=== PATIENT | male | born 1975 | race Two or more races ===

== ENCOUNTER 2024-11-12 08:11 | Emergency (ER) | payer MEDICAID, SELFPAY ==
[2024-11-12 08:12] VITALS: BMI 28.3
[2024-11-12 08:44] VITALS: BP 132/84; PULSE 97; RESP 16; TEMP 37.2; O2SAT 95
--- NOTE | 2024-11-12 09:04 | PD.EDRME ---
Rapid Medical Screening Exam RME Arrival date/time: 11/12/24 08:11 This is a 48-year-old male that comes in with complaints of right flank pain and right sided abdominal pain. Patient states pain started yesterday. Patient reports nausea and vomiting. Patient denies diarrhea. Patient has a history of high blood pressure, diabetes, and hyper lipidemia. Patient denies any respiratory symptoms. I have greeted and performed a focused initial assessment of this patient. Initial appropriate labs ordered at this time. A comprehensive ED assessment and evaluation of the patient and analysis of all test and completion of medical decision making process will be conducted by additional ED provider. Chief Complaint: Abdominal Pain Time Seen by Provider: 11/12/24 08:43 Vital signs: Vital Signs Temperature 99.0 F 11/12/24 08:44 Pulse Rate 97 11/12/24 08:44 Respiratory Rate 16 11/12/24 08:44 Blood Pressure 132/84 H 11/12/24 08:44 Pulse Oximetry (%) 95 11/12/24 08:44 Oxygen Delivery Method Room Air 11/12/24 08:44
[2024-11-12 09:18] LABS: Collection Type, Urine Voided; Squamous Epithelial Cell,Urine 0 /hpf (0-5)
[2024-11-12 09:30] LABS: Basophils % (Auto) 0 % (0-2.5); Eosinophils % (Auto) 0 % (0-10); Hemoglobin 15.1 g/dL (13.5-16.0); Immature Granulocytes % (Auto) 0 % (0-0); Immature Granulocytes Auto 0.02 Thou/mm3 (0.00-0.00); Lymphocytes # (Auto) 1.4 Thou/mm3 (1.0-4.8); Lymphocytes % (Auto) 20 % (10-50); Mean Corpuscular HGB Conc 34.3 g/dl (31.0-37.0); Mean Corpuscular Hemoglobin 29.6 pg (25.0-35.0); Mean Corpuscular Volume 86 fL (80-100); Monocytes # (Auto) 0.7 Thou/mm3 (0.0-0.8); Monocytes % (Auto) 9 % (0-12); Neutrophils % (Auto) 71 % (37-80); Nucleated Red Blood Cell % 0 /100 WBC (0); Platelet Count 194 Thou/mm3 (140-440); RDW Standard Deviation 41.1 fL (35.1-43.9); White Blood Count 7.1 Thou/mm3 (3.8-10.6)
[2024-11-12 09:48] LABS: Alanine Aminotransferase 17 U/L (10-49); Albumin, Serum 4.2 gm/dL (3.5-5.0); Albumin/Globulin Ratio 1.7 (1.2-2.2); Alkaline Phosphatase 87 U/L (46-116); Anion Gap 6 (7-16); Aspartate Amino Transferase 26 U/L (0-34); BUN/Creatinine Ratio 16 Ratio (12-20); Bilirubin,Total 0.3 mg/dL (0.3-1.2); Blood Urea Nitrogen 13 mg/dL (9-23); Calcium 8.9 mg/dL (8.3-10.6); Calcium (Corrected) 8.9 mg/dL (8.5-10.1); Carbon Dioxide 30.4 mMol/L (20.0-31.0); Chloride 97 mMol/L (98-107); Creatinine (Component) 0.8 mg/dL (0.6-1.3); Estimated Creatinine Clearance 102.3 mL/min (>60); Globulin 2.5 gm/dL (2.3-3.5); Glucose 159 mg/dL (74-106); Lipase 60 U/L (12-53); Osmolality,Calculated 269 (275-295); Potassium 4.8 mMol/L (3.4-5.1); Sodium 133 mMol/L (136-145); Total Protein 6.7 gm/dL (5.7-8.2); eGFR > 60 See Note
[2024-11-12 09:51] LABS: Bilirubin,Urine Negative (Negative); Blood,Urine Trace (Negative); Clarity,Urine Clear (Clear/Hazy); Color,Urine Lt-Yellow (Lt Yel-Yel); Culture Indicated,Urine Not Indicated; Glucose, Urine 4+ (Negative); Ketones,Urine 1+ (Negative); Leukocyte Esterase,Urine Negative (Negative); Nitrite,Urine Negative (Negative); PH,Urine 6.5 (5.0-7.0); Protein,Urine 3+ (Neg - Trace); RBC,Urine 4 /hpf (0-3); Specific Gravity,Urine 1.029 (1.001-1.035); Urobilinogen,Urine Negative mg/dL (0.0-1.0); WBC,Urine < 1 /hpf (0-5)
[2024-11-12 11:40] VITALS: BP 114/78; PULSE 86; RESP 19; TEMP 37.1; O2SAT 96
--- NOTE | 2024-11-12 11:54 | PD.EDABDPN ---
ED Abdominal Pain RME/HPI General Chief Complaint: Abdominal Pain Stated complaint: RIGHT KIDNEY PAIN FOR 4 DAYS Time seen by provider: 11/12/24 08:43 Arrival date/time: 11/12/24 08:11 RME / HPI RME / HPI narrative: 11/12/24 08:11 This is a 48-year-old male that comes in with complaints of right flank pain and right sided abdominal pain. Patient states pain started yesterday. Patient reports nausea and vomiting. Patient denies diarrhea. Patient has a history of high blood pressure, diabetes, and hyper lipidemia. Patient denies any respiratory symptoms. I have greeted and performed a focused initial assessment of this patient. Initial appropriate labs ordered at this time. A comprehensive ED assessment and evaluation of the patient and analysis of all test and completion of medical decision making process will be conducted by additional ED provider. DR. ERVIN MAIN ED EVALUATION: 48 year old male presents to the Emergency Department with complaint of abdominal pain, left lower quadrant more than right lower quadrant. Pain is described as aching and rated moderate in severity. No modifying factors reported at this time. Associated symptoms include x1 vomiting episode today. Also constipated and last bowel movement was 2 days ago, which is abnormal for him because he states he has a bowel movement daily. He mentions having a subjective fever last night with some sweating. No dysuria. No cough, congestion, or runny nose. No vision changes. PMHx: Diabetes, hypertension, and hyperlipidemia. Social Hx: No tobacco, alcohol, or substance use. Related Data Home Medications ?Medication ?Instructions ?Recorded ?Confirmed atorvastatin 20 mg tablet 20 mg PO QPM 12/31/18 12/31/18 lisinopril 10 mg tablet 10 mg PO QDAY 12/31/18 12/31/18 naproxen 500 mg tablet 500 mg PO BID 12/31/18 12/31/18 sitagliptin phosphate 50 1 tab PO BID 12/31/18 12/31/18 mg-metformin 1,000 mg tablet ([place]) Previous Rx's ?Medication ?Instructions ?Recorded dicyclomine 20 mg tablet 20 mg PO QID PRN abdominal pain 03/08/19 #30 tabs ondansetron HCl 4 mg tablet 4 mg PO QID PRN nausea and 03/08/19 (Zofran) vomiting #14 tabs acetaminophen 650 mg 650 mg PO Q8H PRN fever or pain 04/29/21 tablet,extended release #30 tabs ibuprofen 600 mg tablet 600 mg PO Q8H PRN fever or pain 04/29/21 #30 tabs Allergies Allergy/AdvReac Type Severity Reaction Status Date / Time No Known Allergies Allergy Verified 11/12/24 08:14 Review of Systems Review of Systems Systems Reviewed: All systems reviewed, normal except as documented Narrative Review of Systems: GEN: + subjective fever, no chills, no weight loss, + sweating EYES: No discharge, no visual changes, no pain HEENT: No ear pain, no congestion, no sore throat PULM: No shortness of breath, no cough, no congestion CV: No chest pain, no dyspnea on exertion, no palpitations GI: No nausea, + x1 vomiting episode, no diarrhea, + abdominal pain, left lower quadrant more than right lower quadrant, + constipation (see HPI) : No frequency, no urgency and no dysuria MUSC/SKEL: No joint pain, no back pain SKIN: No rash PSYCH: No hallucinations, no depression HEME/LYMPH: No easy bleeding or bruising tendencies NEURO: No weakness, no headache Past Medical History Past Medical History CARDIAC: Positive Cardiac Disorders, Hypercholesterolemia and Hypertension ENDOCRINE: Positive Diabetes Mellitus Type 2 Social History SMOKING STATUS: Never smoker SUBSTANCE USE: does not use ALCOHOL: Never ED Exam Narrative Physical exam: GENERAL APPEARANCE: alert and oriented x 4, well-developed, well-nourished, looks uncomfortable VITALS: All vitals were reviewed and the pulse ox is 96% on room air, which is normal according to my interpretation. HEENT: Normocephalic, atraumatic; pupils equal, round, reactive to light; EOMI; mucous membranes pink, moist; oropharynx clear NECK: Supple LUNGS: CTABL; no wheezes, no rales, no rhonchi HEART: Regular rate, regular rhythm; normal S1, S2; no murmurs ABDOMEN: non distended; normal BS; there is some left lower quadrant tenderness and right lower quadrant tenderess, L>R; but no guarding and no rebound; no masses, no organomegaly, no hernia BACK: there is right CVA tenderness EXTREMITIES: atraumatic; no edema NEUROLOGIC: awake; alert and oriented x4; cranial nerves II-XII grossly intact; no focal sensory or motor deficits PSYCHIATRIC: appropriate mood and affect SKIN: warm, dry, normal color; no rashes Course Quality Measures none Orders Category Date Time Status CT abdomen pelvis wo con Stat Exams 11/12/24 11:59 Completed CBC Stat Lab 11/12/24 09:13 Completed Comprehensive Metabolic Panel Stat Lab 11/12/24 09:13 Completed Lipase Stat Lab 11/12/24 09:13 Completed Urinalysis, C/S if Indicated Stat Lab 11/12/24 08:55 Completed HYDROcodone*/APAP 5/325 [Schurz 5/325] Med 11/12/24 11:58 Discontinued 1 tab PO X1 ONE Ondansetron Odt [Zofran Odt] Med 11/12/24 11:58 Discontinued 4 mg PO X1 ONE Vital Signs Vital signs: Vital Signs Temperature 99.0 F 11/12/24 08:44 Pulse Rate 97 11/12/24 08:44 Respiratory Rate 16 11/12/24 08:44 Blood Pressure 132/84 H 11/12/24 08:44 Pulse Oximetry (%) 95 11/12/24 08:44 Oxygen Delivery Method Room Air 11/12/24 08:44 Abdominal Pain MDM MDM Narrative MDM Narrative:: IShantelle am scribing for and in the presence of Dr. Ervin. Patient data External records reviewed:: [facility] previous records (Reviewed last ED visit dated 02/18/23, discharged with the following: Acute flank pain) Clinical information provided by:: patient Social determinants that could affect healthcare access:: none Patient has the following chronic illnesses:: Diabetes, hypertension, and hyperlipidemia. How is presenting disease/condition affected by chronic disease/condition?: exacerbated by Evaluation data The following diagnostics were reviewed and interpreted by me:: lab results and radiology exam(s) Lab and/or radiology exams considered but not ordered:: none Interpretation Summary: Procedure(s): CT abdomen pelvis wo con Accession Number(s): [id number] cc: Pravin Pelayo MD; Lemuel Chaudhary MD; Gini Ervin MD~ Examination: CT abdomen and pelvis without contrast. Coronal 3-D reconstructions. Sagittal 2-D reconstructions. Date and time of exam:November 12, 2024 1211 hrs. Indications: Left lower abdominal pain right flank pain beginning 4 days ago CTDI: vol (mGy): 7.69 DLP: (mGycm): 408 Technique: Axial images of the abdomen have been obtained, 3 mm slice thickness Intravenous contrast material has not been administered. Low dose protocols were performed. One or more of the following dose reduction techniques were used; automated exposure control, adjustment of the mA and/or KV according to patient size, use of iterative reconstruction technique. Findings: No focal liver or splenic lesions No gallstones No pancreatic or adrenal mass Perinephric stranding No renal or ureteral calculi Small right renal cyst No bowel obstruction Normal appendix No diverticulitis Transverse prostate dimension 5.3 cm Intact urinary bladder Mild osteopenia Impression: Perinephric stranding, consider urinary tract infection No renal or ureteral calculi, no hydronephrosis Cholelithiasis Normal appendix No bowel obstruction No diverticulitis Dictated By: Lemuel Chaudhary MD Medications / Prescriptions Medications or Prescriptions considered but not ordered:: none Medication administrations:: Medication Administration History Discontinued Medications Hydrocodone Bitart/Acetaminophen (Hydrocodone/Apap 5/325 Tablet) 1 tab PO X1 ONE Stop: 11/12/24 11:59 Last Admin: 11/12/24 12:39 Dose: 1 tab Documented By: SYLWIA Ondansetron HCl (Ondansetron Odt 4 Mg Tabrap) 4 mg PO X1 ONE; Protocol Stop: 11/12/24 11:59 Last Admin: 11/12/24 12:39 Dose: 4 mg Documented By: SYLWIA see above Consultations Consultation(s) initiated? (list below): No Diagnosis Differential diagnosis abdominal pain: abdominal pain, calculus of kidney, constipation and small bowel obstruction Most likely diagnosis given after review of the tests above:: Proteinuria Right flank pain Cholelithiasis Biliary colic Admission Indicated Admission indicated?: not indicated Admission Request Was there a request for admission?: No Disposition Plan Disposition Plan: Discharge Discharge Attestation Discharge Attestation: The patient and all family members were given an opportunity to ask questions and understood the discharge instructions. Discharge instructions specifically effects, indications for sooner follow up or return to the emergency department, and the expected course of current diagnosis. Patient condition: Stable Discharge Plan Prescriptions/Referrals Prescriptions/Med Rec: No Action atorvastatin 20 mg Tablet 20 mg PO QPM lisinopril 10 mg Tablet 10 mg PO QDAY naproxen 500 mg Tablet 500 mg PO BID Janumet 50-1,000 mg Tablet 1 tab PO BID ondansetron HCl [Zofran] 4 mg tablet 4 mg PO QID PRN (Reason: nausea and vomiting) Qty: 14 0RF dicyclomine 20 mg tablet 20 mg PO QID PRN (Reason: abdominal pain) Qty: 30 0RF acetaminophen 650 mg tablet extended release 650 mg PO Q8H PRN (Reason: fever or pain) Qty: 30 0RF Rx Instructions: swallow whole; do not chew/break/dissolve/open ibuprofen 600 mg tablet 600 mg PO Q8H PRN (Reason: fever or pain) Qty: 30 0RF Referrals: Pravin Pelayo MD [Primary Care Provider] - In 1 week Problem List Clinical Impression: Proteinuria, Right flank pain, Cholelithiasis, Biliary colic Patient/Caregiver Discharge Instructions Education Materials: ED Flank Pain, Uncertain Cause, ED Gallstones with Biliary Colic, ED Proteinuria Additional Instructions: Follow up with your doctor to recheck protein in urine. Return to the emergency department if your symptoms worsen, do not improve, or other concerns. Print Language: Yi
--- NOTE | 2024-11-12 11:59 | XR_ITS ---
Examination: CT abdomen and pelvis without contrast. Coronal 3-D reconstructions. Sagittal 2-D reconstructions. Date and time of exam:November 12, 2024 1211 hrs. Indications: Left lower abdominal pain right flank pain beginning 4 days ago CTDI: vol (mGy): 7.69 DLP: (mGycm): 408 Technique: Axial images of the abdomen have been obtained, 3 mm slice thickness Intravenous contrast material has not been administered. Low dose protocols were performed. One or more of the following dose reduction techniques were used; automated exposure control, adjustment of the mA and/or KV according to patient size, use of iterative reconstruction technique. Findings: No focal liver or splenic lesions No gallstones No pancreatic or adrenal mass Perinephric stranding No renal or ureteral calculi Small right renal cyst No bowel obstruction Normal appendix No diverticulitis Transverse prostate dimension 5.3 cm Intact urinary bladder Mild osteopenia Impression: Perinephric stranding, consider urinary tract infection No renal or ureteral calculi, no hydronephrosis Cholelithiasis Normal appendix No bowel obstruction No diverticulitis
[2024-11-12] MEDS: HYDROcodone/APAP 5/325 TABLET 1 TAB PO (12:39)
[2024-11-12] MEDS: ONDANSETRON ODT 4 MG TABRAP PO (12:39)
[2024-11-12 14:37] VITALS: BP 114/78; PULSE 83; RESP 16; TEMP 36.7; O2SAT 96
--- NOTE | 2024-11-12 14:54 | PC.NURSE ---
This RN notified by Pooja [employer] that pt FSBS [address] Ervin made aware; verbal orders received for pt to drink orange juice and to recheck FSBS in 30minutes.
[2024-11-12 15:40] VITALS: BP 124/81; PULSE 80; RESP 18; TEMP 36.8; O2SAT 96
== END 2024-11-12 15:41 | disposition home or self-care (01) ==
LOC: SERX 09:22
PROVIDERS: Nurse Practitioner Family; Emergency Provider Emergency Medicine; PCP Family Medicine
DX: K80.70 Calculus of gallbladder and bile duct without cholecystitis without obstruction (principal); R80.9 Proteinuria, unspecified; E11.9 Type 2 diabetes mellitus without complications; E78.5 Hyperlipidemia, unspecified
CPT/HCPCS: 36415; 74176; 80053; 81001; 83690; 85025; 99284; Q0162; A9270

== ENCOUNTER 2025-08-05 02:56 | Inpatient (IN) | payer MEDICAID, SELFPAY ==
[2025-08-05] VITALS (31 sets, daily range): BP systolic 106–154; BP diastolic 61–87; PULSE 106–123; RESP 6–27; TEMP 36.3–36.9; O2SAT 94–100; BMI 27.4
--- NOTE | 2025-08-05 03:37 | XR_ITS ---
Examination: CT abdomen and pelvis without contrast. Coronal 3-D reconstructions. Sagittal 2-D reconstructions. Date and time of exam: August 05, 2025, 0354 hours INDICATIONS: Bilateral flank pain and vomiting beginning today. COMPARISON: November 12, 2024 CTDI: vol (mGy): 7.26 DLP: (mGycm): 410 Technique: Axial images of the abdomen have been obtained, 3 mm slice thickness Intravenous contrast material has not been administered. Low dose protocols were performed. One or more of the following dose reduction techniques were used; automated exposure control, adjustment of the mA and/or KV according to patient size, use of iterative reconstruction technique. Findings: No focal liver or splenic lesions Cholelithiasis No pancreatic mass. No renal or ureteral calculi, no hydronephrosis Normal appendix No bowel obstruction No diverticulitis No bladder mass or bladder calculi Prostate is mildly irregular in contour, clinical correlation advised Mild osteopenia IMPRESSION: Cholelithiasis, negative for cholecystitis No renal or ureteral calculi Prostate is mildly irregular in contour, recommend correlation with PSA
--- NOTE | 2025-08-05 03:38 | PD.EDRME ---
Rapid Medical Screening Exam RME Arrival date/time: 08/05/25 02:56 This is a case of 49-year-old male who came in in the emergency room due to bilateral flank pain radiating to abdominal pain for 2 days associated with nausea vomiting patient blood sugar today noted 433 thus decided to start consult in the emergency room Chief Complaint: General Adult/Misc Complain Time Seen by Provider: 08/05/25 03:37 Vital signs: Vital Signs Temperature 97.7 F 08/05/25 03:32 Pulse Rate 113 H 08/05/25 03:32 Respiratory Rate 20 08/05/25 03:32 Blood Pressure 106/66 08/05/25 03:32 Pulse Oximetry (%) 97 08/05/25 03:32 Oxygen Delivery Method Room Air 08/05/25 03:32 Exam: Bilateral flank tenderness abdomen soft no guarding no rebound no rigidity excellent skin turgor Clinical Impression: Bilateral flank pain vomiting hyperglycemia
[2025-08-05 03:59] LABS: Base Excess, Venous -17 (-3-3); Basophils # (Auto) 0.0 Thou/mm3 (0.0-0.2); Basophils % (Auto) 0 % (0-2.5); Eosinophils # (Auto) 0.0 Thou/mm3 (0.0-0.5); Eosinophils % (Auto) 0 % (0-10); Hematocrit 46.7 % (41.0-53.0); Hemoglobin 15.4 g/dL (13.5-16.0); Immature Granulocytes Auto 0.07 Thou/mm3 (0.00-0.00); Lymphocytes # (Auto) 0.7 Thou/mm3 (1.0-4.8); Lymphocytes % (Auto) 5 % (10-50); Mean Corpuscular HGB Conc 33.0 g/dl (31.0-37.0); Mean Corpuscular Hemoglobin 29.7 pg (25.0-35.0); Mean Corpuscular Volume 90 fL (80-100); Monocytes # (Auto) 0.7 Thou/mm3 (0.0-0.8); Monocytes % (Auto) 5 % (0-12); Neutrophils # (Auto) 12.6 Thou/mm3 (1.8-7.7); Neutrophils % (Auto) 90 % (37-80); Nucleated Red Blood Cell # 0.00 Thou/mm3 (0.00-0.00); Nucleated Red Blood Cell % 0 /100 WBC (0); O2 Saturation, Venous 62 % (96-97); PCO2, Venous 37 mmHg (36-56); PO2, Venous 36 mmHg (15-58); Platelet Count 268 Thou/mm3 (140-440); RDW Standard Deviation 43.3 fL (35.1-43.9); Red Blood Count 5.19 Miln/mm3 (4.50-5.90); White Blood Count 14.0 Thou/mm3 (3.8-10.6); pH, Venous 7.10 (7.33-7.66)
[2025-08-05 04:04] LABS: Beta Hydroxybutyrate > 6.4 mmol/L (<0.6)
[2025-08-05] MEDS: HYDROcodone/APAP 5/325 TABLET 1 TAB PO (04:14)
[2025-08-05] MEDS: KETOROLAC INJ 60 MG/2 ML VIAL 30 MG IM (04:15)
[2025-08-05] MEDS: ONDANSETRON ODT 4 MG TABRAP PO (04:15)
--- NOTE | 2025-08-05 04:19 | PD.EDWEAK ---
ED Weakness RME/HPI General Chief complaint: General Adult/Misc Complain Stated complaint: NAUSEA VOMITING BS 433 Time Seen by Provider: 08/05/25 03:37 Arrival date/time: 08/05/25 02:56 RME / HPI RME / HPI Narrative: 08/05/25 02:56 This is a case of 49-year-old male who came in in the emergency room due to bilateral flank pain radiating to abdominal pain for 2 days associated with nausea vomiting patient blood sugar today noted 433 thus decided to start consult in the emergency room See [facility] for Dr. Montenegro's HPI Documentation. Exam: Bilateral flank tenderness abdomen soft no guarding no rebound no rigidity excellent skin turgor Impression: Bilateral flank pain vomiting hyperglycemia Related Data Home Medications ?Medication ?Instructions ?Recorded ?Confirmed lisinopril 10 mg tablet 10 mg PO QDAY 12/31/18 08/05/25 naproxen 500 mg tablet 500 mg PO BID 12/31/18 08/05/25 sitagliptin phosphate 50 1 tab PO BID 12/31/18 08/05/25 mg-metformin 1,000 mg tablet (Janumet) dulaglutide 3 mg/0.5 mL 3 mg subcut .WEEKLY 08/05/25 08/05/25 subcutaneous pen injector (Trulicity) insulin detemir U-100 100 unit/mL 30 unit subcut BID 08/05/25 08/05/25 (3 mL) subcutaneous pen insulin glargine 100 unit/mL (3 35 unit subcut BID 08/05/25 08/05/25 mL) subcutaneous pen (Lantus Solostar U-100 Insulin) Previous Rx's ?Medication ?Instructions ?Recorded dicyclomine 20 mg tablet 20 mg PO QID PRN abdominal pain 03/08/19 #30 tabs ondansetron HCl 4 mg tablet 4 mg PO QID PRN nausea and 03/08/19 (Zofran) vomiting #14 tabs acetaminophen 650 mg 650 mg PO Q8H PRN fever or pain 04/29/21 tablet,extended release #30 tabs ibuprofen 600 mg tablet 600 mg PO Q8H PRN fever or pain 04/29/21 #30 tabs Allergies Allergy/AdvReac Type Severity Reaction Status Date / Time No Known Allergies Allergy Verified 08/05/25 03:05 Review of Systems Review of Systems Systems Reviewed: All systems reviewed, normal except as documented Past Medical History Past Medical History CARDIAC: Positive Cardiac Disorders, Hypercholesterolemia and Hypertension ENDOCRINE: Positive Diabetes Mellitus Type 2 ED Exam Narrative Physical exam: See MDM for Dr. Montenegro's Physical Exam Documentation. Course Quality Measures none Orders Category Date Time Status Bedside COVID-19 Antigen Test NOW Care 08/05/25 04:22 Active COVID-19 Screening Questionnaire NOW Care 08/05/25 04:48 Active Decision to Admit X1 Care 08/05/25 04:48 Completed EKG (ED ONLY) *Do not use* NOW Care 08/05/25 04:24 Completed Saline [Insert IV] NOW Care 08/05/25 04:22 Active Straight [In and Out Catheter] X1 Care 08/05/25 04:[address] abdomen pelvis wo con Stat Exams 08/05/25 03:37 Completed EKG (ED Only) Stat Exams 08/05/25 04:24 Draft XR chest 1V portable Stat Exams 08/05/25 04:24 Completed ABG [Arterial Blood Gas] Stat Lab 08/05/25 05:23 Completed Alcohol, Blood Medical Stat Lab 08/05/25 04:45 Completed Amylase Stat Lab 08/05/25 04:45 Completed BNP [B-Type Natriuretic Peptide] Stat Lab 08/05/25 04:45 Completed Beta Hydroxybutyrate Stat Lab 08/05/25 03:40 Completed Bilirubin,Direct Stat Lab 08/05/25 04:45 Completed Blood Culture (Lab) Stat Lab 08/05/25 04:45 Received CBC Stat Lab 08/05/25 03:40 Completed CRP [C-Reactive Protein] Stat Lab 08/05/25 04:45 Completed Comprehensive Metabolic Panel Stat Lab 08/05/25 03:40 Completed Drug Screen,Urine Stat Lab 08/05/25 07:09 Ordered ESR [Sed Rate (ESR)] Stat Lab 08/05/25 04:45 Completed Hemoglobin A1C [Glycohemoglobin w (eAG)] Stat Lab 08/05/25 04:45 Completed Influenza A & B Rapid Panel Stat Lab 08/05/25 07:00 Completed Lactate (Lactic Acid) Stat Lab 08/05/25 04:45 Completed Lipase Stat Lab 08/05/25 03:40 Completed Lipid Panel Stat Lab 08/05/25 04:45 Completed Magnesium Stat Lab 08/05/25 04:45 Completed PT [Prothrombin Time with INR] Stat Lab 08/05/25 04:45 Completed PTT [Partial Thromboplastin Time] Stat Lab 08/05/25 04:45 Completed Phosphorous Stat Lab 08/05/25 04:45 Completed Procalcitonin Stat Lab 08/05/25 04:45 Completed TSH [Thyroid Stimulating Hormone] Stat Lab 08/05/25 04:45 Completed Troponin I Stat Lab 08/05/25 04:45 Completed UA, C/S IF [Urinalysis, C/S if Indicated] Stat Lab 08/05/25 07:09 Ordered Venous Blood Gas Stat Lab 08/05/25 03:40 Completed HYDROcodone*/APAP 5/325 [[place] 5/325] Med 08/05/25 03:37 Discontinued 1 tab PO X1 ONE Insulin Reg 100 Units/100 ml [Myxredlin] Med 08/05/25 04:24 Discontinued 100 unit in 100 ml IV 0.1 unit/kg/hr Insulin Regular Med 08/05/25 04:37 Discontinued 10 unit IV X1 ONE Ketorolac Inj [Toradol Inj] Med 08/05/25 03:37 Discontinued 30 mg IM X1 ONE Ondansetron Inj [Zofran Inj] Med 08/05/25 04:23 Discontinued 4 mg IVP X1 ONE Ondansetron Odt [Zofran Odt] Med 08/05/25 03:37 Discontinued 4 mg PO X1 ONE Ringers Lactated 1000 ml [Lactated Ringers] 1,000 ml Med 08/05/25 04:23 Discontinued IV 1,000 mls/hr Vital Signs Vital signs: Vital Signs Temperature 97.7 F 08/05/25 03:32 Pulse Rate 113 H 08/05/25 03:32 Respiratory Rate 20 08/05/25 03:32 Blood Pressure 106/66 08/05/25 03:32 Pulse Oximetry (%) 97 08/05/25 03:32 Oxygen Delivery Method Room Air 08/05/25 03:32 Weakness MDM Narrative MDM Narrative:: This section includes all my notes and documentations, including HPI, PE, and ED course. Mark Montenegro MD HPI: 49 y/o male with DM (noncompliant with insulin for a week) here with worsening generalized weakness, nonspecific abdominal pain, vomiting, polydipsia, polyuria, shortness of breath, feeling confused, dry mouth, blurred vision occasionally, anorexia, and diffuse pain. No other complaints. ROS: All negative except as documented in HPI. Physical Exam: General: Alert and oriented. Appearance of severe malaise noted. Eyes: Conjunctivae and lids clear. EOMI. PERRL. ENT: No nasal congestion. Neck: Supple. No carotid bruit. No JVD. Heart: RRR. Lungs: No respiratory distress. Decreased air movement. No severe rhonchi, wheezing, rales. Abdomen: Soft and nontender. Normal bowel sounds. No distension. No rebound or guarding. Back: No CVA tenderness. Legs: No clubbing, cyanosis, edema. Skin: Warm and dry. Neuro: Alert and oriented X 3. Cranial Nerves II-XII grossly intact. No peripheral motor deficits. I reviewed all diagnostic test results: My interpretation of the EKG is sinus tachycardia with no acute ST?T changes. My interpretation of the chest x-ray is: NAD. My review of the Abdomen/Pelvis CT report is: NAD. Blood tests and urine tests remarkable for Glu 698, Cr 2.2, anion gap 31, and beta hydroxybutyrate > 6.4. ABG showed pH 7.13, pCO2 30, and pHCO3 10. At this point, diagnoses include: DKA LAWANDA Treatment here included: Insulin bolus and drip IVF 05:20 - I discussed the case with our ICU team. About the presentation and exam and diagnostics and treatments here. And need of further care in the hospital. Will accept the patient. Mark Montenegro MD Patient data External records reviewed:: [facility] previous records (Reviewed prior ED records from 11/12/24. Patient was seen for Biliary colic.) Clinical information provided by:: patient Social determinants that could affect healthcare access:: none Patient has the following chronic illnesses:: Hypercholesterolemia, Hypertension, Diabetes Mellitus Type 2 How is presenting disease/condition affected by chronic disease/condition?: exacerbated by Evaluation data The following diagnostics were reviewed and interpreted by me:: lab results, radiology exam(s) and EKG tracing(s) Lab and/or radiology exams considered but not ordered:: None Interpretation Summary: I reviewed all diagnostic test results: My interpretation of the EKG is sinus tachycardia with no acute ST?T changes. My interpretation of the chest x-ray is: NAD. My review of the Abdomen/Pelvis CT report is: NAD. Blood tests and urine tests remarkable for Glu 698, Cr 2.2, anion gap 31, and beta hydroxybutyrate > 6.4. ABG showed pH 7.13, pCO2 30, and pHCO3 10. Medications / Prescriptions Medications or Prescriptions considered but not ordered:: None Medication administrations:: Medication Administration History Acetaminophen (Acetaminophen 325 Mg Tablet) 650 mg PO Q6H PRN PRN Reason: Fever >101.5 Stop: 09/04/25 05:20 Acetaminophen (Acetaminophen 325 Mg Tablet) 650 mg PO Q6H PRN PRN Reason: PAIN SCALE 1-3 (mild Stop: 09/04/25 05:20 Albuterol/Ipratropium (Albuterol/Ipratropium (Duoneb) Rt Dunia 3 Ml Nebu) 3 ml INH Q6HRRT PRN PRN Reason: wheezing Stop: 09/04/25 06:59 Atorvastatin Calcium (Atorvastatin Calcium 20 Mg Tablet) 20 mg PO HS RUFUS Stop: 09/04/25 20:59 Last Admin: 08/05/25 21:02 Dose: 20 mg Documented By: ELLA Dextrose (Dextrose 50%-Water Inj 50 Ml Syringe) 25 ml IV Q15MIN PRN PRN Reason: BG 50-70 responsive npo pt Stop: 09/04/25 14:19 Dextrose (Dextrose 50%-Water Inj 50 Ml Syringe) 50 ml IV Q15MIN PRN PRN Reason: BG <50 OR BG <70 & pt unresponsive Stop: 09/04/25 14:19 Glucagon (Glucagon Inj 1 Mg Vial) 1 mg IM Q15MIN PRN PRN Reason: BG <70, and no IV access Heparin Sodium (Porcine) (Heparin Sod Inj 5000 Unit/Ml Vial) 5,000 unit SC Q8HR RUFUS Stop: 08/19/25 05:59 Last Admin: 08/05/25 21:02 Dose: 5,000 unit Documented By: ELLA Co-signed By: THEE Admin: 08/05/25 13:03 Dose: 5,000 unit Documented By: ALEX Co-signed By: VADIM Admin: 08/05/25 05:44 Dose: 5,000 unit Documented By: NICOLE Co-signed By: KARTHIK Hydromorphone HCl (Hydromorphone Inj 2 Mg/Ml Vial) 1 mg IVP Q4H PRN PRN Reason: Pain7-10 Stop: 08/10/25 05:20 Insulin Degludec (Insulin Degludec 5 Unit/0.05 Ml (Per 5 Units)) 10 unit SC QDAY [facility] Stop: 09/04/25 14:29 Last Admin: 08/05/25 14:36 Dose: 10 unit Documented By: ALEX Co-signed By: VADIM Insulin Human Lispro (Insulin Lispro (Admelog) 1 Unit/0.01 Ml Unit) 0 unit SC AC [facility]; Protocol Stop: 09/04/25 16:59 Last Admin: 08/05/25 17:05 Dose: Not Given Documented By: ALEX Non-Admin Reason: Per Protocol Methimazole (Methimazole 5 Mg Tablet) 5 mg PO QDAY [facility] Stop: 09/04/25 16:44 Last Admin: 08/05/25 17:03 Dose: 5 mg Documented By: ALEX Ondansetron HCl (Ondansetron Inj 2 Mg/Ml Inj 2 Ml) 4 mg IVP Q6H PRN; Protocol PRN Reason: NAUSEA OR VOMITING Stop: 09/04/25 05:20 Last Admin: 08/05/25 12:23 Dose: 4 mg Documented By: ALEX Oxycodone/Acetaminophen (Oxycodone/Apap 5/325 Tablet) 1 tab PO Q6H PRN PRN Reason: PAIN SCALE 4-6 (Moderate Stop: 08/10/25 05:20 Pantoprazole Sodium (Pantoprazole Inj 40 Mg Vial) 40 mg IVP QDAY [facility] Stop: 09/04/25 08:59 Last Admin: 08/05/25 08:36 Dose: 40 mg Documented By: ALEX Sennosides (Senna Tablet) 1 tab PO QDAY PRN; Protocol PRN Reason: constipation Stop: 09/04/25 05:20 Discontinued Medications Hydrocodone Bitart/Acetaminophen (Hydrocodone/Apap 5/325 Tablet) 1 tab PO X1 ONE Stop: 08/05/25 03:38 Last Admin: 08/05/25 04:14 Dose: 1 tab Documented By: KARTHIK Dextrose (Dextrose 50%-Water Inj 50 Ml Syringe) 25 ml IV PRNMRX1 PRN PRN Reason: Blood Sugar - Low Lactated Ringer's (Lactated Ringers) 1,000 mls @ 1,000 mls/hr IV .Q1H ONE Stop: 08/05/25 05:22 Last Infusion: 08/05/25 06:26 Dose: Infused Documented By: Admin: 08/05/25 04:50 Dose: 1,000 mls/hr Documented By: NICOLE Insulin Human Regular (Myxredlin) 100 unit in 100 mls @ 7.258 mls/hr IV .[id number] PRN; Protocol PRN Reason: PER PROTOCOL Stop: 09/04/25 04:23 Last Titration: 08/05/25 16:36 Dose: 0 unit/kg/hr, 0 mls/hr Documented By: ALEX Co-signed By: MGD Titration: 08/05/25 16:00 Dose: 0.05 unit/kg/hr, 3.629 mls/hr Documented By: ALEX Co-signed By: MGD Titration: 08/05/25 15:00 Dose: 0.1 unit/kg/hr, 7.258 mls/hr Documented By: ALEX Co-signed By: AT Titration: 08/05/25 14:00 Dose: 0.05 unit/kg/hr, 3.629 mls/hr Documented By: ALEX Co-signed By: MGD Titration: 08/05/25 13:00 Dose: 0.05 unit/kg/hr, 3.629 mls/hr Documented By: ALEX Co-signed By: AT Titration: 08/05/25 12:00 Dose: 0.05 unit/kg/hr, 3.629 mls/hr Documented By: ALEX Co-signed By: MGD(2) Titration: 08/05/25 11:00 Dose: 0.1 unit/kg/hr, 7.258 mls/hr Documented By: ALEX Co-signed By: MGD Titration: 08/05/25 10:00 Dose: 0.1 unit/kg/hr, 7.258 mls/hr Documented By: ALEX Co-signed By: MGD(2) Titration: 08/05/25 09:00 Dose: 0.1 unit/kg/hr, 7.258 mls/hr Documented By: ALEX Co-signed By: MGD(2) Titration: 08/05/25 08:00 Dose: 0.1 unit/kg/hr, 7.258 mls/hr Documented By: ALEX Co-signed By: MGD Titration: 08/05/25 07:03 Dose: 0.1 unit/kg/hr, 7.258 mls/hr Documented By: SYLWIA Co-signed By: NICOLE Titration: 08/05/25 06:00 Dose: 0.1 unit/kg/hr, 7.258 mls/hr Documented By: NICOLE Co-signed By: MARIANA Admin: 08/05/25 04:53 Dose: 0.1 unit/kg/hr, 7.258 mls/hr Documented By: NICOLE Co-signed By: MARIANA Potassium Chloride (Kcl Ivpb) 10 meq in 100 mls @ 100 mls/hr IV .Q1H PRN PRN Reason: IF POTASSIUM LESS THAN 3.3 Stop: 09/04/25 05:20 Magnesium Sulfate (Magnesium Sulfate Ivpb) 2 gm in 50 mls @ 25 mls/hr IV .Q2H PRN PRN Reason: PER DKA PROTOCOL Stop: 09/04/25 05:20 Dextrose/Lactated Ringer's (D5-Lr) 1,000 mls @ 250 mls/hr IV .Q4H PRN PRN Reason: PER PROTOCOL Stop: 09/04/25 05:20 Lactated Ringer's (Lactated Ringers) 1,000 mls @ 250 mls/hr IV .Q4H PRN PRN Reason: PER PROTOCOL Stop: 08/06/25 05:20 Last Infusion: 08/05/25 08:16 Dose: 0 mls/hr Documented By: Admin: 08/05/25 07:29 Dose: 250 mls/hr Documented By: GM Potassium Chloride 20 meq/ (Lactated Ringer's) 1,010 mls @ 250 mls/hr IV .Q4H3M PRN PRN Reason: K LEVEL 3.3 TO 5.3mM/L Stop: 09/04/25 05:20 Last Infusion: 08/05/25 16:00 Dose: 0 mls/hr Documented By: Admin: 08/05/25 15:17 Dose: 250 mls/hr Documented By: Infusion: 08/05/25 15:11 Dose: Infused Documented By: Infusion: 08/05/25 15:00 Dose: 250 mls/hr Documented By: Infusion: 08/05/25 12:08 Dose: 0 mls/hr Documented By: Admin: 08/05/25 08:16 Dose: 250 mls/hr Documented By: ALEX Potassium Chloride 40 meq/ (Lactated Ringer's) 1,020 mls @ 250 mls/hr IV .Q4H5M PRN PRN Reason: K LEVEL < 3.3 mM/L Stop: 09/04/25 05:20 Potassium Chloride 40 meq/ (Dextrose/Lactated Ringer's) 1,020 mls @ 250 mls/hr IV .Q4H5M PRN PRN Reason: K LEVEL < 3.3mM/L Stop: 09/04/25 05:20 Potassium Cl/Dextrose/Lact Ringer's (Kcl 20 Meq/L In D5-Lr) 20 meq in 1,000 mls @ 250 mls/hr IV .Q4H PRN PRN Reason: K LEVEL 3.3 TO 5.3 mM/L Potassium Chloride (Kcl Ivpb) 10 meq in 100 mls @ 50 mls/hr IV PRN PRN PRN Reason: K LEVEL 3.3 to 5.3 & BG > 200 Stop: 09/04/25 05:20 Potassium Phosphate (Pot Phos 15 Mmol In Ns 250 Ml) 15 mmol in 250 mls @ 62.5 mls/hr IV PRN PRN PRN Reason: Phosphate <= 1mg/dL Stop: 09/04/25 05:20 Sodium Phosphate 15 mmol/ (Sodium Chloride) 255 mls @ 62.5 mls/hr IV .Q4H5M PRN PRN Reason: Phosphate <= 1mg/dL and K> than 5.3 Stop: 09/04/25 05:20 Lactated Ringer's (Lactated Ringers) 1,000 mls @ 999 mls/hr IV .Q1H1M ONE Stop: 08/05/25 06:24 Last Infusion: 08/05/25 07:04 Dose: Infused Documented By: Admin: 08/05/25 05:39 Dose: 999 mls/hr Documented By: NICOLE Lactated Ringer's (Lactated Ringers) 1,000 mls @ 999 mls/hr IV .Q1H1M ONE Stop: 08/05/25 06:24 Last Infusion: 08/05/25 07:04 Dose: Infused Documented By: Admin: 08/05/25 05:40 Dose: 999 mls/hr Documented By: NICOLE Potassium Chloride 20 meq/ (Dextrose/Lactated Ringer's) 1,010 mls @ 250 mls/hr IV .Q4H3M PRN PRN Reason: K LEVEL 3.3 TO 5.3 mM/L Stop: 09/04/25 06:44 Last Infusion: 08/05/25 16:36 Dose: 0 mls/hr Documented By: Infusion: 08/05/25 16:00 Dose: 250 mls/hr Documented By: Infusion: 08/05/25 15:00 Dose: 0 mls/hr Documented By: Admin: 08/05/25 12:08 Dose: 250 mls/hr Documented By: ALEX Insulin Human Regular (Insulin Hum Regular 1 Unit/0.01 Ml (Per Unit)) 10 unit IV X1 ONE Stop: 08/05/25 04:38 Last Admin: 08/05/25 04:54 Dose: 10 unit Documented By: NICOLE Co-signed By: MARIANA Comments: CRITICAL HI Ketorolac Tromethamine (Ketorolac Inj 60 Mg/2 Ml Vial) 30 mg IM X1 ONE Stop: 08/05/25 03:38 Last Admin: 08/05/25 04:15 Dose: 30 mg Documented By: KARTHIK Ondansetron HCl (Ondansetron Odt 4 Mg Tabrap) 4 mg PO X1 ONE; Protocol Stop: 08/05/25 03:38 Last Admin: 08/05/25 04:15 Dose: 4 mg Documented By: KARTHIK Ondansetron HCl (Ondansetron Inj 2 Mg/Ml Inj 2 Ml) 4 mg IVP X1 ONE; Protocol Stop: 08/05/25 04:24 Last Admin: 08/05/25 04:54 Dose: 4 mg Documented By: NICOLE Sodium Bicarbonate (Sodium Bicarb Inj 8.4% Syr 50 Ml Syringe) 50 ml IV Q4HR PRN PRN Reason: For ph <= to 7.0 Stop: 09/04/25 05:20 Sodium Bicarbonate (Sodium Bicarb Inj 8.4% 1 Meq/Ml 50 Ml Vial) 50 meq IV X1 ONE Stop: 08/05/25 05:22 Last Admin: 08/05/25 05:39 Dose: 50 meq Documented By: NICOLE Treatment here from me included: Insulin bolus and drip IVF Consultations Consultation(s) initiated? (list below): Yes Consultation #1 (Physician, Specialty, Details): I discussed the case with our ICU team. About the presentation and exam and diagnostics and treatments here. And need of further care in the hospital. Will accept the patient. Time: 05:20 Diagnosis Weakness Differential Diagnosis: anemia, hypoglycemia, hypothyroidism, rhabdomyolysis, sepsis, dehydration and other (Hyperglycemia, DKA) Most likely diagnosis given after review of the tests above:: DKA LAWANDA Admission Indicated Admission indicated?: indicated Explain why admission is indicated or not indicated:: DKA Admission Request Was there a request for admission?: Yes Admission Attestation Admission request attestation: Discussed case with our ICU service regarding admission. Discussed patients ED course, exam findings, labs, and radiology results. Agreed to accept the patient for admission. Disposition Plan Disposition Plan: Admit Critical Care Time Critical Care Time Critical Care Time: Yes Total Critical Care Time (min.): 36 Attestation: Due to a high probability of clinically significant, life threatening deterioration, the patient required my highest level of preparedness to intervene emergently and I personally spent this critical care time directly and personally managing the patient. This critical care time included obtaining a history; examining the patient; ordering and review of studies; arranging urgent treatment with development of a management plan; evaluation of patient's response to treatment; frequent reassessment; and discussions with family and other providers. It was exclusive of separately billable procedures and treating other patients and teaching time. Mark Montenegro MD Discharge Plan Plan Patient Disposition: Admit Acute Care w/in Hospital Problem List Clinical Impression: DKA (diabetic ketoacidosis), LAWANDA (acute kidney injury)
--- NOTE | 2025-08-05 04:24 | XR_ITS ---
EXAMINATION: PA chest single view TECHNIQUE: Upright PA chest single view Date and time: August 05, 2025, 0430 hours INDICATIONS: Vomiting and abdominal pain today FINDINGS: No significant cardiac enlargement. Mild accentuation of bronchovascular markings. No lobar pneumonia or pulmonary edema IMPRESSION: Bronchitis pattern
--- NOTE | 2025-08-05 04:24 | EKG_ITS ---
[facility] (Formerly [facility])[3] Test Date: 2025-08-05 Pat Name: MARGARITA BRADLEY Department: Room: - Gender: Male [employer]: : 1975 Requested By: Mark Bravo Order Number: [id number] Reading MD: Mark Bravo Measurements Intervals [place] Rate: 113 P: 46 RI: 145 QRS: 51 QRSD: 106 T: -48 QT: 280 QTc: 385 Interpretive Statements SINUS TACHYCARDIA NONSPECIFIC T-WAVE ABNORMALITY Compared to ECG 08/04/2022 07:27:36 T-wave abnormality now present Sinus rhythm no longer present /store/S0/[id number].pdf
[2025-08-05 04:32] LABS: Alanine Aminotransferase 21 U/L (10-49); Albumin, Serum 4.7 gm/dL (3.5-5.0); Albumin/Globulin Ratio 2.0 (1.2-2.2); Alkaline Phosphatase 139 U/L (46-116); Anion Gap 31 (7-16); Aspartate Amino Transferase 17 U/L (0-34); BUN/Creatinine Ratio 18 Ratio (12-20); Bilirubin,Total 0.3 mg/dL (0.3-1.2); Blood Urea Nitrogen 40 mg/dL (9-23); Calcium 10.1 mg/dL (8.3-10.6); Calcium (Corrected) 10.1 mg/dL (8.5-10.1); Chloride 100 mMol/L (98-107); Creatinine (Component) 2.2 mg/dL (0.6-1.3); Estimated Creatinine Clearance 36.3 mL/min (>60); Globulin 2.4 gm/dL (2.3-3.5); Lipase 109 U/L (12-53); Osmolality,Calculated 327 (275-295); Potassium 4.8 mMol/L (3.4-5.1); Sodium 143 mMol/L (136-145); Total Protein 7.1 gm/dL (5.7-8.2); eGFR 35 See Note
[2025-08-05 04:33] LABS: Carbon Dioxide 12.2 mMol/L (20.0-31.0)
[2025-08-05 04:34] LABS: Glucose 698 mg/dL (74-106)
--- NOTE | 2025-08-05 04:44 | PRELIM_ITS ---
CT scan of the abdomen and pelvis without intravenous contrast (axial sections with sagittal and coronal reformats) August 05, 2025 0354 hours Clinical History: falnk pain Findings: The lung bases are clear. A small hiatal hernia is present. The pancreas, spleen and adrenals are unremarkable on this noncontrast study. There are small hepatic hypodensities too small to characterize. There are small right renal cysts. There is a gallbladder calculus, without gallbladder wall thickening or pericholecystic fluid. No evidence of bowel obstruction. The appendix is within normal limits . There is no mesenteric or retroperitoneal adenopathy. The urinary bladder is unremarkable. There is no free fluid or free air. The osseous structures are unremarkable. Impression: No evidence of renal/ureteric calculus or hydroureteronephrosis. Other findings as described above. Report Electronically Signed By: Nicole Morales 08/05/2025 4:43:57 AM [EST]
[2025-08-05] MEDS: RINGERS LACTATED 1000 ML 1,000 ML IV (04:50)
[2025-08-05] MEDS: INSULIN REG 100 UNITS/100 ML 100 UNIT/100 ML BAG 7.258 UNIT IV (04:53)
[2025-08-05] MEDS: ONDANSETRON INJ 2 MG/ML INJ 2 ML 4 MG IVP ×3 (04:54→23:43)
[2025-08-05] MEDS: INSULIN HUM REGULAR 1 UNIT/0.01 ML (PER UNIT) 10 UNIT IV (04:54)
[2025-08-05 05:10] LABS: Lactate (Lactic Acid) 3.6 mMol/L (0.4-2.0)
[2025-08-05 05:13] LABS: Sed Rate (ESR) 33 mm/hr (0-20)
[2025-08-05 05:26] LABS: Base Excess -18 (-3-3); HCO3 10 mEq/L (20-26); Inspired Oxygen, FIO2 21 %; O2 Saturation 98 % (91-98); PCO2 30 mmHg (32.0-48.0); PO2 105 mmHg (83-108)
[2025-08-05 05:27] LABS: Allen Test Performed/OK; Puncture Site Right Radial
[2025-08-05 05:27] LABS: INR 0.9 (0.9-1.3); Partial Thromboplastin Time 24.8 Seconds (22.0-36.0); Prothrombin Time 10.0 Seconds (9.0-12.2)
--- NOTE | 2025-08-05 05:27 | PD.RESHP ---
Documentation for date of: 08/05/25 [facility] History of Present Illness Chief complaint: Nausea vomiting and decreased appetite History of present illness: This patient is a 49-year-old male with past medical history of hypertension, hyperlipidemia, asthma use rescue inhaler and uncontrolled insulin dependent type 2 diabetes presented to the ED on 08/05/2025 with chief complaint of nausea and vomiting associate with abdominal pain and flank pain from last 2 days. Patient reported that he had more than 10 episodes of vomiting without blood from last 2 days associated with nausea. He could not keep anything in his stomach and had no bowel movement past Wednesday. Vomitus contained black fluid mainly digested food particles without blood. Patient denied any abdominal pain on assessment however reported to have some flank pain. He has been making urine dark in color. He reported that he did not had a bowel movement but passing gas. He denied any fever/chills, shortness of breath, burning in the urine or any other complaint. He stated that he uses rescue inhaler for asthma. Patient has not been compliant with his medications especially his insulin as he stated that he was thinking that it is not helping with his uncontrolled hyperglycemia. He takes both insulin and oral hypoglycemic agents and also been on GLP-1 analog but he has not been taking medications every day. ED course: In the ED, he was mildly hypotensive blood pressure 106/66, tachycardic 113, respirate 20, afebrile and saturating well on room air. Labs were significant for leukocytosis WBC 14.0. Hemoglobin stable at 15.4. ESR 33. VBG showed pH 7.10, pCO2 37, pO2 36. Chemistry panel showed sodium 143, potassium 4.8, chloride 100. Anion gap metabolic acidosis bicarb 12.2. Anion gap 31. LAWANDA with BUN 42, creatinine 2.2, GFR 35 baseline creatinine 0.8. From 11/12/2024. Blood glucose 698. A1c pending. Lactic acid elevated at 3.6. Liver enzymes unremarkable. Mildly elevated BNP. Lipase 109. BHB more than 6.4. Chest x-ray showed no active disease. CT abdomen/pelvis was not significant. small hernia noted pending official read. PMH: As above PSH: Not significant SH: Denies smoking, drinking alcohol. No history of illicit drug use. Allergies: NKDA Home medications: Trulicity, Synjardy, Levemir 35 units twice daily, atorvastatin 20 mg at bedtime, lisinopril 10 mg once daily, albuterol rescue inhaler Patient is admitted to ICU for management of DKA due to possible noncompliance. Review of Systems Review of Systems Systems Reviewed: All systems reviewed, normal except as documented Past Medical History Past Medical History CARDIAC: Positive Cardiac Disorders, Hypercholesterolemia and Hypertension ENDOCRINE: Positive Diabetes Mellitus Type 2 Exam Vital Signs Temp Pulse Resp BP Pulse Ox O2 Del Method 97.8 F 117 H 17 127/63 99 Room Air 08/05/25 05:00 08/05/25 05:15 08/05/25 05:15 08/05/25 05:15 08/05/25 05:15 08/05/25 05:00 Narrative Exam GENERAL APPEARANCE: AxOx4, generally well-appearing male in no acute distress. HEENT: NC, AT. Dry mucous membrane. EOMI, clear conjunctiva, oropharynx clear. NECK: Supple without lymphadenopathy. No stiffness or restricted ROM. HEART: Sinus tachycardia with regular rhythm, normal S1/S2, no m/r/g LUNGS: CTAB, moving air well. No crackles or wheezes are heard. ABDOMEN: Soft, epigastric tenderness, nondistended with good bowel sounds heard. BACK: No CVAT, no obvious deformity. EXTREMITIES: Without cyanosis, clubbing or edema. NEUROLOGICAL: Grossly nonfocal. Alert and oriented, moving all 4 extremities. CN not formally tested but appear grossly intact. Observed to ambulate with normal gait. Skin: Warm and dry without any rash. Psych: Appropriate mood and affect Results: Labs 08/06/25 11:53 08/06/25 04:43 Labs: Short CBC 08/05/25 Range/Units 03:40 WBC 14.0 H (3.8-10.6) Thou/mm3 Hgb 15.4 (13.5-16.0) g/dL Hct 46.7 (41.0-53.0) % Plt Count 268 (140-440) Thou/mm3 BMP 08/05/25 03:40 Sodium 143 Potassium 4.8 Chloride 100 Carbon Dioxide 12.2 L* BUN 40 H Creatinine 2.2 H Glucose 698 H* Calcium 10.1 Liver Function 08/05/25 Range/Units 03:40 Total Bilirubin 0.3 (0.3-1.2) mg/dL AST 17 (0-34) U/L ALT 21 (10-49) U/L Alkaline Phosphatase 139 H (46-116) U/L Albumin 4.7 (3.5-5.0) gm/dL ABG Interpretation ABG results: 08/05/25 03:40 VBG pH 7.10 L VBG pCO2 37 VBG pO2 36 VBG Base Excess -17 L Quality Measures Quality Measures VTE prophylaxis (Heparin subcut) Medications Home Medications and Allergies Home Medications ?Medication ?Instructions ?Recorded ?Confirmed ?Type lisinopril 10 mg tablet 10 mg PO QDAY 12/31/18 08/05/25 History sitagliptin phosphate 50 1 tab PO BID 12/31/18 08/05/25 History mg-metformin 1,000 mg tablet (Janumet) dulaglutide 3 mg/0.5 mL 3 mg subcut .WEEKLY 08/05/25 08/05/25 History subcutaneous pen injector (Trulicity) Allergies Allergy/AdvReac Type Severity Reaction Status Date / Time No Known Allergies Allergy Verified 08/05/25 03:05 Visit Medications Acetaminophen (Acetaminophen 325 Mg Tablet) 650 mg PO Q6H PRN PRN Reason: Fever >101.5 Stop: 09/04/25 05:20 Acetaminophen (Acetaminophen 325 Mg Tablet) 650 mg PO Q6H PRN PRN Reason: PAIN SCALE 1-3 (mild Stop: 09/04/25 05:20 Dextrose (Dextrose 50%-Water Inj 50 Ml Syringe) 25 ml IV [id number] PRN PRN Reason: Blood Sugar - Low Heparin Sodium (Porcine) (Heparin Sod Inj 5000 Unit/Ml Vial) 5,000 unit SC Q8HR [facility] Stop: 08/19/25 05:59 Hydromorphone HCl (Hydromorphone Inj 2 Mg/Ml Vial) 1 mg IVP Q4H PRN PRN Reason: Pain7-10 Stop: 08/10/25 05:20 Insulin Human Regular (Myxredlin) 100 unit in 100 mls @ 7.258 mls/hr IV .[id number] PRN; Protocol PRN Reason: PER PROTOCOL Stop: 09/04/25 04:23 Last Admin: 08/05/25 04:53 Dose: 0.1 unit/kg/hr, 7.258 mls/hr Potassium Chloride (Kcl Ivpb) 10 meq in 100 mls @ 100 mls/hr IV .Q1H PRN PRN Reason: IF POTASSIUM LESS THAN 3.3 Stop: 09/04/25 05:20 Magnesium Sulfate (Magnesium Sulfate Ivpb) 2 gm in 50 mls @ 25 mls/hr IV .Q2H PRN PRN Reason: PER DKA PROTOCOL Stop: 09/04/25 05:20 Dextrose/Lactated Ringer's (D5-Lr) 1,000 mls @ 250 mls/hr IV .Q4H PRN PRN Reason: PER PROTOCOL Stop: 09/04/25 05:20 Lactated Ringer's (Lactated Ringers) 1,000 mls @ 250 mls/hr IV .Q4H PRN PRN Reason: PER PROTOCOL Stop: 08/06/25 05:20 Potassium Chloride 20 meq/ (Lactated Ringer's) 1,010 mls @ 250 mls/hr IV .Q4H3M PRN PRN Reason: K LEVEL 3.3 TO 5.3mM/L Stop: 09/04/25 05:20 Potassium Chloride 40 meq/ (Lactated Ringer's) 1,020 mls @ 250 mls/hr IV .Q4H5M PRN PRN Reason: K LEVEL < 3.3 mM/L Stop: 09/04/25 05:20 Potassium Chloride 40 meq/ (Dextrose/Lactated Ringer's) 1,020 mls @ 250 mls/hr IV .Q4H5M PRN PRN Reason: K LEVEL < 3.3mM/L Stop: 09/04/25 05:20 Potassium Cl/Dextrose/Lact Ringer's (Kcl 20 Meq/L In D5-Lr) 20 meq in 1,000 mls @ 250 mls/hr IV .Q4H PRN PRN Reason: K LEVEL 3.3 TO 5.3 mM/L Potassium Chloride (Kcl Ivpb) 10 meq in 100 mls @ 50 mls/hr IV PRN PRN PRN Reason: K LEVEL 3.3 to 5.3 & BG > 200 Stop: 09/04/25 05:20 Potassium Phosphate (Pot Phos 15 Mmol In Ns 250 Ml) 15 mmol in 250 mls @ 62.5 mls/hr IV PRN PRN PRN Reason: Phosphate <= 1mg/dL Stop: 09/04/25 05:20 Sodium Phosphate 15 mmol/ (Sodium Chloride) 255 mls @ 62.5 mls/hr IV .Q4H5M PRN PRN Reason: Phosphate <= 1mg/dL and K> than 5.3 Stop: 09/04/25 05:20 Lactated Ringer's (Lactated Ringers) 1,000 mls @ 999 mls/hr IV .Q1H1M ONE Stop: 08/05/25 06:24 Lactated Ringer's (Lactated Ringers) 1,000 mls @ 999 mls/hr IV .Q1H1M ONE Stop: 08/05/25 06:24 Ondansetron HCl (Ondansetron Inj 2 Mg/Ml Inj 2 Ml) 4 mg IVP Q6H PRN; Protocol PRN Reason: NAUSEA OR VOMITING Stop: 09/04/25 05:20 Oxycodone/Acetaminophen (Oxycodone/Apap 5/325 Tablet) 1 tab PO Q6H PRN PRN Reason: PAIN SCALE 4-6 (Moderate Stop: 08/10/25 05:20 Pantoprazole Sodium (Pantoprazole Inj 40 Mg Vial) 40 mg IVP QDAY RUFUS Stop: 09/04/25 08:59 Sennosides (Senna Tablet) 1 tab PO QDAY PRN; Protocol PRN Reason: constipation Stop: 09/04/25 05:20 Sodium Bicarbonate (Sodium Bicarb Inj 8.4% Syr 50 Ml Syringe) 50 ml IV Q4HR PRN PRN Reason: For ph <= to 7.0 Stop: 09/04/25 05:20 Sodium Bicarbonate (Sodium Bicarb Inj 8.4% 1 Meq/Ml 50 Ml Vial) 50 meq IV X1 ONE Stop: 08/05/25 05:22 Discontinued Medications Hydrocodone Bitart/Acetaminophen (Hydrocodone/Apap 5/325 Tablet) 1 tab PO X1 ONE Stop: 08/05/25 03:38 Last Admin: 08/05/25 04:14 Dose: 1 tab Lactated Ringer's (Lactated Ringers) 1,000 mls @ 1,000 mls/hr IV .Q1H ONE Stop: 08/05/25 05:22 Last Admin: 08/05/25 04:50 Dose: 1,000 mls/hr Insulin Human Regular (Insulin Hum Regular 1 Unit/0.01 Ml (Per Unit)) 10 unit IV X1 ONE Stop: 08/05/25 04:38 Last Admin: 08/05/25 04:54 Dose: 10 unit Ketorolac Tromethamine (Ketorolac Inj 60 Mg/2 Ml Vial) 30 mg IM X1 ONE Stop: 08/05/25 03:38 Last Admin: 08/05/25 04:15 Dose: 30 mg Ondansetron HCl (Ondansetron Odt 4 Mg Tabrap) 4 mg PO X1 ONE; Protocol Stop: 08/05/25 03:38 Last Admin: 08/05/25 04:15 Dose: 4 mg Ondansetron HCl (Ondansetron Inj 2 Mg/Ml Inj 2 Ml) 4 mg IVP X1 ONE; Protocol Stop: 08/05/25 04:24 Last Admin: 08/05/25 04:54 Dose: 4 mg Assessment & Plan Plan This patient is a 49-year-old male with past medical history of hypertension, hyperlipidemia, asthma use rescue inhaler and uncontrolled insulin dependent type 2 diabetes presented to the ED on 08/05/2025 with chief complaint of nausea and vomiting associate with abdominal pain and flank pain from last 2 days. Admitted for DKA. Neurology No active issue Cardiovascular #Sinus tachycardia - In the setting of DKA -Patient had more than 10 episodes of nausea and vomiting from last 2 days. - IV fluid resuscitation - Continue monitoring heart rate Respiratory #History of asthma Patient endorses chronic dry cough. Patient uses rescue inhaler at home. -Chest x-ray was unremarkable. -Albuterol breathing treatment as needed for wheezing GI and F/E/N #Intractable nausea and vomiting In the setting of DKA -Zofran as needed for nausea and vomiting -PPI for GI prophylaxis Renal #LAWANDA likely prerenal -DDx: Dehydration due to nausea and vomiting related to DKA, uncontrolled diabetes -Patient presented with elevated BUN 40 and creatinine 2.2 with baseline creatinine 0.8 from November 2024 - Patient still making urine -Strict SAMUEL's - IV fluids -Avoid nephrotoxic agents - Continue DKA protocol - Trending renal panel #High anion gap metabolic acidosis with partial resp compensation - In the setting of DKA - Anion gap 31, bicarb 12.2, - ABG showed pH 7.13, pCO2 30, pO2 98% - Winter formula: - Delta-delta gap: 1.5(Pure HAGMA) - Continue DKA protocol - 3 L bolus of LR given x 1 and 1 amp of bicarb - Trend renal panel #Lactic acidosis - Related to DKA - IV fluid resuscitation - Trend lactic acid Q3 hourly Heme #Leukocytosis likely reactive -Patient denied any fever spikes. - WBC 14.0 - Continue to trend WBC Endo #DKA DDx: Noncompliance to medications - Patient reported that he has not been taking his insulin regularly as he think that they are not working for him. -Patient presented with intractable nausea and vomiting associated with abdominal pain for last 2 days. -Patient has been taking Levemir 35 units twice daily, Synjardy, Trulicity once every week which he has not been compliant. -Per chart review A1c was more than 12 from 2022. -Patient received 3 L bolus of LR, amp of bicarb and pain medication in the ED. -Continue with DKA protocol -Continue renal panel, lactic acid Q4 hourly -Repleting electrolytes as necessary -will hold Synjardy in the setting of LAWANDA -Follow-up with repeat A1c and lipid panel -Consider transitioning to subcu insulin once anion gap closed twice less than 13, bicarb more than 20 and patient is not vomiting -Diabetic education and referred to registered dieitician ID No active issue ICU health maintenance DVT prophylaxis: Heparin subcut GI prophylaxis: Protonix 40 mg IV daily Diet: NPO Perdomo: None Lines: Peripherals Drips: Insulin Vent: None CODE STATUS: Full code Reason of hospitalization: Patient is admitted for management of DKA. -- Patient discussed with my attending, MD Jeison Munguia MD, PGY 3 Attending Provider Attestation/Addendum After examination of the patient and review of the clinical data I feel that this patient needs admission to the hospital for further treatment/evaluation. TOTAL CC TIME: 45 MIN TOTAL TIME: 45 Minutes of direct medical management and planning of care. I Brenda Clark MD, attest that I was physically present for coleman portions of evaluation, and examined patient, labs and imagings and plan of care were discussed with IM residents team, and I agree with the findings and plans documented above.
[2025-08-05 05:28] LABS: pH, Arterial 7.13 (7.35-7.45)
[2025-08-05 05:29] LABS: B-Type Natriuretic Peptide 99 pg/mL (0-100)
[2025-08-05] MEDS: RINGERS LACTATED 1000 ML 1,000 ML 999 ML IV ×2 (05:39→05:40)
[2025-08-05] MEDS: SODIUM BICARB INJ 8.4% 1 mEq/ML 50 ML VIAL 50 MEQ IV (05:39)
[2025-08-05] MEDS: HEPARIN SOD INJ 5000 UNIT/ML VIAL SC ×3 (05:44→21:02)
[2025-08-05 06:42] LABS: Glucose Estimated Average 315 mg/dL (80-131); Hemoglobin A1C 12.6 % Hgb (4.8-6.0)
[2025-08-05 07:18] LABS: Alcohol, Blood Medical < 3.0 mg/dL (0-10.0); Amylase 161 U/L (30-118); Bilirubin,Direct < 0.1 mg/dL (0.0-0.3); C-Reactive Protein 0.9 mg/dL (0.0-0.9); Cardiac Risk Estimate 5.6 RATIO (4.0-6.7); Cholesterol 246 mg/dL (132-200); HDL Cholesterol 44 mg/dL (40-60); LDL Cholesterol,Calculated 162 mg/dL (0-130); Magnesium 2.9 mg/dL (1.6-2.6); Procalcitonin 0.15 ng/ml (0.0-0.49); Thyroid Stimulating Hormone 0.04 uIU/mL (0.55-4.78); Triglycerides 198 mg/dL (30-150); Troponin I 0.027 ng/mL (0.0-0.045)
[2025-08-05] MEDS: RINGERS LACTATED 1000 ML 1,000 ML 250 ML IV (07:29)
[2025-08-05 07:51] LABS: Phosphorous 9.2 mg/dL (2.4-5.1)
[2025-08-05 08:07] LABS: Reflex Lactate? Y
[2025-08-05] MEDS: POT CHL ADDITIVE 20 MEQ in RINGERS LACTATED 1000 ML 1,000 ML 250 MEQ IV ×2 (08:16→15:17)
--- NOTE | 2025-08-05 08:55 | PD.RESPRO ---
Documentation for date of: 08/05/25 Subjective Subjective Interval history: 49-year-old male with past medical history of hypertension, hyperlipidemia, asthma use rescue inhaler and uncontrolled insulin dependent type 2 diabetes presented to the ED on 08/05/2025 with chief complaint of nausea and vomiting associate with abdominal pain and flank pain from last 2 days. Patient reported that he had more than 10 episodes of vomiting without blood from last 2 days associated with nausea. He could not keep anything in his stomach and had no bowel movement past Wednesday. Vomitus contained black fluid mainly digested food particles without blood. Patient denied any abdominal pain on assessment however reported to have some flank pain. He has been making urine dark in color. He reported that he did not had a bowel movement but passing gas. He denied any fever/chills, shortness of breath, burning in the urine or any other complaint. He stated that he uses rescue inhaler for asthma. Patient has not been compliant with his medications especially his insulin as he stated that he was thinking that it is not helping with his uncontrolled hyperglycemia. He takes both insulin and oral hypoglycemic agents and also been on GLP-1 analog but he has not been taking medications every day. ED course: In the ED, he was mildly hypotensive blood pressure 106/66, tachycardic 113, respirate 20, afebrile and saturating well on room air. Labs were significant for leukocytosis WBC 14.0. Hemoglobin stable at 15.4. ESR 33. VBG showed pH 7.10, pCO2 37, pO2 36. Chemistry panel showed sodium 143, potassium 4.8, chloride 100. Anion gap metabolic acidosis bicarb 12.2. Anion gap 31. LAWANDA with BUN 42, creatinine 2.2, GFR 35 baseline creatinine 0.8. From 11/12/2024. Blood glucose 698. A1c pending. Lactic acid elevated at 3.6. Liver enzymes unremarkable. Mildly elevated BNP. Lipase 109. BHB more than 6.4. Chest x-ray showed no active disease. CT abdomen/pelvis was not significant. small hernia noted pending official read. 08/05/2025: Patient was seen and examined bedside this morning. No acute overnight events. Patient remained on insulin drip throughout the morning and by the afternoon his anion gap was downtrending and his acidosis had resolved. Later on in the afternoon his anion gap closed once therefore he was started on p.o. diet was transition with degludec 10 as well as sliding scale for now as patient metabolic demands had improvement patient was at 0.1 units /kg. Repeat labs showed improvement of patient's LAWANDA as well, mildly hypernatremic. Free T4 was elevated at 2.53. Patient at this time is stable enough to be downgraded to medical floors. Exam Vital Signs Temp Pulse Resp BP Pulse Ox O2 Del Method 98.1 F 115 H 17 136/71 H 97 Room Air 08/05/25 07:09 08/05/25 07:09 08/05/25 07:09 08/05/25 07:09 08/05/25 07:09 08/05/25 07:09 Narrative Exam General: A/O x3, no acute distress Eyes: PERRL, EOMI. Anicteric, vision grossly intact. Ears: No ear pain, no ear discharge, Hearing grossly intact. Nose: No nasal discharge. Mouth/Throat: Moist mucous membranes, no redness, no lesions. Neck: Neck supple, non-tender, no cervical lymphadenopathy. Lungs: Clear KRIS to auscultation and percussion, No accessory muscle use. Cardio: Normal S1/S2, regular rhythm, no murmurs, no JVD or carotid bruits. Abdomen: Soft, but distended, non-tender, no palpable masses, peristalsis present, no guarding or rebound. Extremities: Symmetrical, no significant deformities, no peripheral edema , non-tender, peripheral pulses presents. Skin: No rashes, no lesions, warm to touch. Neuro: No focal neurological deficits. Psych: Cooperative, appropriate mood and effect. Objective Labs 08/06/25 11:53 08/06/25 04:43 Labs: Laboratory Results - last 24 hr 08/05/25 08/05/25 08/05/25 03:40 04:45 05:23 WBC 14.0 H RBC 5.19 Hgb 15.4 Hct 46.7 MCV 90 MCH 29.7 MCHC 33.0 RDW Std Deviation 43.3 Plt Count 268 Neut % (Auto) 90 H Lymph % (Auto) 5 L [place] % (Auto) 5 Eos % (Auto) 0 Baso % (Auto) 0 Neut # (Auto) 12.6 H Lymph # (Auto) 0.7 L [place] # (Auto) 0.7 Eos # (Auto) 0.0 Baso # (Auto) 0.0 Immature Gran # (Auto) 0.07 H Absolute Nucleated RBC 0.00 Immature Gran % 1 H Nucleated RBC % 0 ESR 33 H PT 10.0 INR 0.9 APTT 24.8 Puncture Site Right Radial ABG pH 7.13 L* ABG pCO2 30 L ABG pO2 105 ABG HCO3 10 L ABG O2 Saturation 98 ABG Base Excess -18 L VBG pH 7.10 L VBG pCO2 37 VBG pO2 36 VBG O2 Sat (Gail) 62 L VBG Base Excess -17 L FiO2 21 Sodium 143 Potassium 4.8 Chloride 100 Carbon Dioxide 12.2 L* Anion Gap 31 H BUN 40 H Creatinine 2.2 H Estim Creat Clear Calc 36.3 L eGFR 35 L BUN/Creatinine Ratio 18 Glucose 698 H* Estimated Ave Glu mg/dL 315 H Hemoglobin A1c 12.6 H Calculated Osmolality 327 H Lactic Acid 3.6 H Calcium 10.1 Corrected Calcium 10.1 Phosphorus 9.2 H Magnesium 2.9 H Total Bilirubin 0.3 Direct Bilirubin < 0.1 AST 17 ALT 21 Alkaline Phosphatase 139 H Troponin I 0.027 C-Reactive Prot, Quant 0.9 B-Natriuretic Peptide 99 Total Protein 7.1 Albumin 4.7 Globulin 2.4 Albumin/Globulin Ratio 2.0 Triglycerides 198 H Cholesterol 246 H LDL Cholesterol, Calc 162 H HDL Cholesterol 44 Cholesterol/HDL Ratio 5.6 Amylase 161 H Lipase 109 H Beta-Hydroxybutyrate/Acetoacetate > 6.4 H Procalcitonin 0.15 TSH 0.04 L* Ethyl Alcohol < 3.0 ABG Interpretation ABG results: 08/05/25 08/05/25 03:40 05:23 ABG pH 7.13 L* ABG pCO2 30 L ABG pO2 105 ABG HCO3 10 L ABG O2 Saturation 98 ABG Base Excess -18 L VBG pH 7.10 L VBG pCO2 37 VBG pO2 36 VBG Base Excess -17 L Quality Measures Quality Measures VTE prophylaxis (Heparin subcut) Assessment & Plan Assessment Current Active Medications: Generic Name Dose Route Start Last Admin Trade Name Freq PRN Reason Stop Dose Admin Acetaminophen 650 mg 08/05/25 05:21 Acetaminophen 325 Mg Tablet PO 09/04/25 05:20 Q6H PRN Fever >101.5 Acetaminophen 650 mg 08/05/25 05:21 Acetaminophen 325 Mg Tablet PO 09/04/25 05:20 Q6H PRN PAIN SCALE 1-3 (mild Albuterol/Ipratropium 3 ml 08/05/25 05:42 Albuterol/Ipratropium (Duoneb) Rt Dunia 3 Ml Nebu INH 09/04/25 06:59 Q6HRRT PRN wheezing Atorvastatin Calcium 20 mg 08/05/25 21:00 Atorvastatin Calcium 20 Mg Tablet PO 09/04/25 20:59 HS RUFUS Dextrose 25 ml 08/05/25 05:21 Dextrose 50%-Water Inj 50 Ml Syringe IV [id number] PRN Blood Sugar - Low Heparin Sodium (Porcine) 5,000 unit 08/05/25 06:00 08/05/25 05:44 Heparin Sod Inj 5000 Unit/Ml Vial SC 08/19/25 05:59 5,000 unit Q8HR RUFUS Administration Hydromorphone HCl 1 mg 08/05/25 05:21 Hydromorphone Inj 2 Mg/Ml Vial IVP 08/10/25 05:20 Q4H PRN Pain7-10 Insulin Human Regular 100 unit in 100 mls @ 7.258 mls/hr 08/05/25 04:24 08/05/25 08:00 Myxredlin IV 09/04/25 04:23 0.1 unit/kg/hr .[id number] PRN 7.258 mls/hr PER PROTOCOL Titration Protocol 0.1 UNIT/KG/HR Potassium Chloride 10 meq in 100 mls @ 100 mls/hr 08/05/25 05:21 Kcl Ivpb IV 09/04/25 05:20 .Q1H PRN IF POTASSIUM LESS THAN 3.3 Magnesium Sulfate 2 gm in 50 mls @ 25 mls/hr 08/05/25 05:21 Magnesium Sulfate Ivpb IV 09/04/25 05:20 .Q2H PRN PER DKA PROTOCOL Dextrose/Lactated Ringer's 1,000 mls @ 250 mls/hr 08/05/25 05:21 D5-Lr IV 09/04/25 05:20 .Q4H PRN PER PROTOCOL Lactated Ringer's 1,000 mls @ 250 mls/hr 08/05/25 05:21 08/05/25 08:16 Lactated Ringers IV 08/06/25 05:20 0 mls/hr .Q4H PRN Infusion PER PROTOCOL Potassium Chloride 20 meq/ 1,010 mls @ 250 mls/hr 08/05/25 05:21 08/05/25 08:16 Lactated Ringer's IV 09/04/25 05:20 250 mls/hr .Q4H3M PRN Administration K LEVEL 3.3 TO 5.3mM/L Potassium Chloride 40 meq/ 1,020 mls @ 250 mls/hr 08/05/25 05:21 Lactated Ringer's IV 09/04/25 05:20 .Q4H5M PRN K LEVEL < 3.3 mM/L Potassium Chloride 40 meq/ 1,020 mls @ 250 mls/hr 08/05/25 05:21 Dextrose/Lactated Ringer's IV 09/04/25 05:20 .Q4H5M PRN K LEVEL < 3.3mM/L Potassium Chloride 10 meq in 100 mls @ 50 mls/hr 08/05/25 05:21 Kcl Ivpb IV 09/04/25 05:20 PRN PRN K LEVEL 3.3 to 5.3 & BG > 200 Potassium Phosphate 15 mmol in 250 mls @ 62.5 mls/hr 08/05/25 05:21 Pot Phos 15 Mmol In Ns 250 Ml IV 09/04/25 05:20 PRN PRN Phosphate <= 1mg/dL Sodium Phosphate 15 mmol/ 255 mls @ 62.5 mls/hr 08/05/25 05:21 Sodium Chloride IV 09/04/25 05:20 .Q4H5M PRN Phosphate <= 1mg/dL and K> than 5.3 Potassium Chloride 20 meq/ 1,010 mls @ 250 mls/hr 08/05/25 06:45 Dextrose/Lactated Ringer's IV 09/04/25 06:44 .Q4H3M PRN K LEVEL 3.3 TO 5.3 mM/L Ondansetron HCl 4 mg 08/05/25 05:21 Ondansetron Inj 2 Mg/Ml Inj 2 Ml IVP 09/04/25 05:20 Q6H PRN NAUSEA OR VOMITING Protocol Oxycodone/Acetaminophen 1 tab 08/05/25 05:21 Oxycodone/Apap 5/325 Tablet PO 08/10/25 05:20 Q6H PRN PAIN SCALE 4-6 (Moderate Pantoprazole Sodium 40 mg 08/05/25 09:00 08/05/25 08:36 Pantoprazole Inj 40 Mg Vial IVP 09/04/25 08:59 40 mg QDAY RUFUS Administration Sennosides 1 tab 08/05/25 05:21 Senna Tablet PO 09/04/25 05:20 QDAY PRN constipation Protocol Sodium Bicarbonate 50 ml 08/05/25 05:21 Sodium Bicarb Inj 8.4% Syr 50 Ml Syringe IV 09/04/25 05:20 Q4HR PRN For ph <= to 7.0 Plan 49-year-old male with past medical history of hypertension, hyperlipidemia, asthma use rescue inhaler and uncontrolled insulin dependent type 2 diabetes presented to the ED on 08/05/2025 with chief complaint of nausea and vomiting associate with abdominal pain and flank pain from last 2 days. Admitted for DKA. Neurology No active issue Cardiovascular #Sinus tachycardia, improving In the setting of DKA and dehydration Patient had more than 10 episodes of nausea and vomiting from last 2 days. Plan: - IV fluid resuscitation - Continue monitoring heart rate Respiratory #History of asthma Patient endorses chronic dry cough. Patient uses rescue inhaler at home. Chest x-ray was unremarkable. Plan: -Albuterol breathing treatment as needed for wheezing GI and F/E/N #Intractable nausea and vomiting In the setting of DKA Plan: -Zofran as needed for nausea and vomiting -PPI for GI prophylaxis Renal #LAWANDA likely prerenal, improving DDx: Dehydration due to nausea and vomiting related to DKA, uncontrolled diabetes Patient presented with elevated BUN 40 and creatinine 2.2 with baseline creatinine 0.8 from November 2024 Cr 1.4 on repeat today Plan: - Good UO - Strict SAMUEL's - IV fluids - Avoid nephrotoxic agents #High anion gap metabolic acidosis with partial resp compensation, improving In the setting of DKA Anion gap 31, bicarb 12.2, ABG showed pH 7.13, pCO2 30, pO2 98% Winter formula: 24-28 Delta-delta gap: 1.5(Pure HAGMA) Got 3 L bolus of LR given x 1 and 1 amp of bicarb most recent AG 10, bicarb 27.8 Plan: - Transitioned to sc insulin - Encouraged PO intake #Lactic acidosis, resolved Related to DKA Plan: -IV fluid resuscitation #Hypernatremia Na 150 Free water deficit of 2L Plan: Encouraged PO free water if repeat Na still uptrending can start D5W and monitor BG Heme #Leukocytosis likely reactive Patient denied any fever spikes. WBC 14.0 Continue to trend WBC Endo #DKA, resolved DDx: Noncompliance to medications Patient reported that he has not been taking his insulin regularly as he think that they are not working for him. Patient presented with intractable nausea and vomiting associated with abdominal pain for last 2 days. Patient has been taking Levemir 35 units twice daily, Synjardy, Trulicity once every week which he has not been compliant. Per chart review A1c was more than 12 from 2022. Patient received 3 L bolus of LR, amp of bicarb and pain medication in the ED. A1c 12.6 Plan: -Transitioned from insulin drip to SC insulin today after AG closed -Repleting electrolytes as necessary -Diabetic education and referred to registered dieitician #Hyperthyroidism Patient had sth 0.04 Patient free T4 2.53 Plan: Consider propanolol if tachycardia does not improve with DKA resolution ID No active issue ICU health maintenance DVT prophylaxis: Heparin subcut GI prophylaxis: Protonix 40 mg IV daily Diet: Carb consistent Perdomo: None Lines: Peripherals Drips: None Vent: None CODE STATUS: Full code Case disclosed with Attending Dr. Анна Chaudhari PGY2 Disclaimer: Even though this this note was dictated by speech recognition and even though it was carefully revised there may still be minor errors in employment representative due to voice recognition software. Attending Provider Attestation/Addendum Patient seen and examined with the above resident, Kuldip Chaudhari MD. I agree with the findings, assessment, and plan of care as document except for any differences below. Patient admitted overnight with diabetic ketoacidosis SIRS. No presence of underlying infection or ischemic event. Likely precipitant is due to noncompliance in the setting he felt well and did not think he needed his medications in a long run. Patient appropriately transitioned this evening and is tolerating p.o. diet. [facility] management prior to discharge in the next 24 to 48 hours. Patient does need diabetes education and consultation from cesspool cleaner. Patient also with likely sick euthyroid his tachycardia may not resolve and suggest subclinical hypothyroidism. This can be addressed appropriately on the [facility]. Patient's acute renal injury has improved. Asthma remains stable. Patient on appropriate prophylaxis. Total critical care time: I personally spent 30 minutes for review of physiologic parameters, directing plan of care throughout today, coordination of care with other subspecialist, and counseling patient at bedside. This is exclusive of time spent teaching on staff performing any separate billable procedures. Patient remains at significant risk for further morbidity and mortality warranting close monitoring care only available in ICU. Critical care services required for serious with endorgan damage but no infection, diabetic ketoacidosis, and acute renal failure/prerenal secondary to hypovolemia.
[2025-08-05 08:59] LABS: Influenza A Ag Negative; Influenza B Ag Negative
[2025-08-05 09:01] LABS: Lactate (Lactic Acid) 2.5 mMol/L (0.4-2.0)
--- NOTE | 2025-08-05 10:38 | PC.SS ---
Patient is a 49 year old make presenting to the hospital for DKA. COMPLAINT ANALYST made contact with patient and patient at bedside. Patient gave consent for to remain in the room. COMPLAINT ANALYST introduced self, role, and reason for visit. Patient confirmed demographic information. Patient stated that in case he is unable to make medical decisions on his own he would like his Zakia to make them [phone]. 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 Capps and his last appointment was 3 months ago. Patient stated that [facility] Patient stated that once medically clear he would like to return home and his will provide transportation. D/c: home PCP: Dr. Capps Decision maker: Zakia Ramos
[2025-08-05 11:24] LABS: Albumin, Serum 3.9 gm/dL (3.5-5.0); Anion Gap 18 (7-16); BUN/Creatinine Ratio 23 Ratio (12-20); Blood Urea Nitrogen 37 mg/dL (9-23); Calcium 9.5 mg/dL (8.3-10.6); Calcium (Corrected) 9.6 mg/dL (8.5-10.1); Carbon Dioxide 22.7 mMol/L (20.0-31.0); Chloride 106 mMol/L (98-107); Creatinine (Component) 1.6 mg/dL (0.6-1.3); Estimated Creatinine Clearance 49.9 mL/min (>60); Glucose 350 mg/dL (74-106); Magnesium 2.4 mg/dL (1.6-2.6); Osmolality,Calculated 315 (275-295); Phosphorous 3.9 mg/dL (2.4-5.1); Potassium 3.4 mMol/L (3.4-5.1); Sodium 147 mMol/L (136-145); eGFR 52 See Note
[2025-08-05 11:41] LABS: Free T4 (Free Thyroxine) 2.53 ng/dL (0.89-1.76)
[2025-08-05 12:01] LABS: Reflex Lactate? Y
[2025-08-05] MEDS: POT CHL ADDITIVE 20 MEQ in DEXTROSE 5%-LACTATED RINGERS 1,000 ML 250 MEQ IV (12:08)
[2025-08-05 13:14] LABS: Lactate (Lactic Acid) 1.9 mMol/L (0.4-2.0)
[2025-08-05 13:54] LABS: Albumin, Serum 3.8 gm/dL (3.5-5.0); Anion Gap 10 (7-16); BUN/Creatinine Ratio 24 Ratio (12-20); Blood Urea Nitrogen 34 mg/dL (9-23); Calcium 9.4 mg/dL (8.3-10.6); Calcium (Corrected) 9.6 mg/dL (8.5-10.1); Carbon Dioxide 27.8 mMol/L (20.0-31.0); Chloride 112 mMol/L (98-107); Creatinine (Component) 1.4 mg/dL (0.6-1.3); Estimated Creatinine Clearance 57.0 mL/min (>60); Glucose 184 mg/dL (74-106); Magnesium 2.2 mg/dL (1.6-2.6); Osmolality,Calculated 310 (275-295); Phosphorous 2.7 mg/dL (2.4-5.1); Potassium 3.5 mMol/L (3.4-5.1); Sodium 150 mMol/L (136-145); eGFR > 60 See Note
[2025-08-05] MEDS: INSULIN DEGLUDEC 5 UNIT/0.05 ML (PER 5 UNITS) 10 UNIT SC (14:36)
--- NOTE | 2025-08-05 16:03 | ESPR_ITS ---
<Statement entered by Vishal Rubio MD - 08/05/25 16:12> Patient is admitted for DKA secondary to drug noncompliance. Insulin drip was stopped after the anion gap is closed twice. Insulin drip stopped and transition to subcutaneous insulin, degludec 10 units. Patient is downgraded to floors for further management. I have personally seen and examined the patient, agree with residents assessment and plan Patient plan of care was discussed with the attending physician, Dr. Makayla Rubio, PGY2 Documentation for date of: 08/05/25 Subjective Subjective Interval history: Patient seen and examined today after downgrade from ICU. Reports feeling well with no nausea, vomiting, or abdominal pain. Denies chest pain, shortness of breath, or dizziness. Tolerating oral intake. Informed about need to increase free water intake due to elevated sodium. No new complaints. Exam Vital Signs Temp Pulse Resp BP Pulse Ox O2 Del Method 98.5 F 114 H 25 H 144/75 H 98 Room Air 08/05/25 08:00 08/05/25 15:00 08/05/25 15:00 08/05/25 15:00 08/05/25 15:00 08/05/25 08:00 Narrative Exam General: Alert and oriented ?3, no acute distress. HEENT: Dry mucous membranes improving, PERRL, oropharynx clear. CV: Regular rhythm, mild tachycardia, no murmurs. Resp: Lungs clear to auscultation bilaterally, no wheezes or crackles. Abdomen: Soft, nondistended, non-tender, normoactive bowel sounds. Extremities: No edema, pulses palpable. Neuro: Non-focal, moving all extremities. Skin: Warm, dry, no lesions. Objective Labs 08/05/25 03:40 08/05/25 13:00 Labs: Laboratory Results - last 24 hr 08/05/25 08/05/25 08/05/25 03:40 04:45 05:23 WBC 14.0 H RBC 5.19 Hgb 15.4 Hct 46.7 MCV 90 MCH 29.7 MCHC 33.0 RDW Std Deviation 43.3 Plt Count 268 Neut % (Auto) 90 H Lymph % (Auto) 5 L [place] % (Auto) 5 Eos % (Auto) 0 Baso % (Auto) 0 Neut # (Auto) 12.6 H Lymph # (Auto) 0.7 L [place] # (Auto) 0.7 Eos # (Auto) 0.0 Baso # (Auto) 0.0 Immature Gran # (Auto) 0.07 H Absolute Nucleated RBC 0.00 Immature Gran % 1 H Nucleated RBC % 0 ESR 33 H PT 10.0 INR 0.9 APTT 24.8 Puncture Site Right Radial ABG pH 7.13 L* ABG pCO2 30 L ABG pO2 105 ABG HCO3 10 L ABG O2 Saturation 98 ABG Base Excess -18 L VBG pH 7.10 L VBG pCO2 37 VBG pO2 36 VBG O2 Sat (Gail) 62 L VBG Base Excess -17 L FiO2 21 Sodium 143 Potassium 4.8 Chloride 100 Carbon Dioxide 12.2 L* Anion Gap 31 H BUN 40 H Creatinine 2.2 H Estim Creat Clear Calc 36.3 L eGFR 35 L BUN/Creatinine Ratio 18 Glucose 698 H* Estimated Ave Glu mg/dL 315 H Hemoglobin A1c 12.6 H Calculated Osmolality 327 H Lactic Acid 3.6 H Calcium 10.1 Corrected Calcium 10.1 Phosphorus 9.2 H Magnesium 2.9 H Total Bilirubin 0.3 Direct Bilirubin < 0.1 AST 17 ALT 21 Alkaline Phosphatase 139 H Troponin I 0.027 C-Reactive Prot, Quant 0.9 B-Natriuretic Peptide 99 Total Protein 7.1 Albumin 4.7 Globulin 2.4 Albumin/Globulin Ratio 2.0 Triglycerides 198 H Cholesterol 246 H LDL Cholesterol, Calc 162 H HDL Cholesterol 44 Cholesterol/HDL Ratio 5.6 Amylase 161 H Lipase 109 H Beta-Hydroxybutyrate/Acetoacetate > 6.4 H Procalcitonin 0.15 TSH 0.04 L* Free T4 Ethyl Alcohol < 3.0 Influenza A (Rapid) Influenza B (Rapid) 08/05/25 08/05/25 08/05/25 07:00 08:31 13:00 WBC RBC Hgb Hct MCV MCH MCHC RDW Std Deviation Plt Count Neut % (Auto) Lymph % (Auto) [place] % (Auto) Eos % (Auto) Baso % (Auto) Neut # (Auto) Lymph # (Auto) [place] # (Auto) Eos # (Auto) Baso # (Auto) Immature Gran # (Auto) Absolute Nucleated RBC Immature Gran % Nucleated RBC % ESR PT INR APTT Puncture Site ABG pH ABG pCO2 ABG pO2 ABG HCO3 ABG O2 Saturation ABG Base Excess VBG pH VBG pCO2 VBG pO2 VBG O2 Sat ([place]) VBG Base Excess FiO2 Sodium 147 H 150 H Potassium 3.4 D 3.5 Chloride 106 112 H Carbon Dioxide 22.7 27.8 Anion Gap 18 H 10 BUN 37 H 34 H Creatinine 1.6 H D 1.4 H Estim Creat Clear Calc 49.9 L 57.0 L eGFR 52 L > 60 BUN/Creatinine Ratio 23 H 24 H Glucose 350 H D [address] Glu mg/dL Hemoglobin A1c Calculated Osmolality 315 H 310 H Lactic Acid 2.5 H 1.9 Calcium 9.5 9.4 Corrected Calcium 9.6 9.6 Phosphorus 3.9 2.7 Magnesium 2.4 2.2 Total Bilirubin Direct Bilirubin AST ALT Alkaline Phosphatase Troponin I C-Reactive Prot, Quant B-Natriuretic Peptide Total Protein Albumin 3.9 D 3.8 Globulin Albumin/Globulin Ratio Triglycerides Cholesterol LDL Cholesterol, Calc HDL Cholesterol Cholesterol/HDL Ratio Amylase Lipase Beta-Hydroxybutyrate/Acetoacetate Procalcitonin TSH Free T4 2.53 H Ethyl Alcohol Influenza A (Rapid) Negative Influenza B (Rapid) Negative ABG Interpretation ABG results: 08/05/25 08/05/25 03:40 05:23 ABG pH 7.13 L* ABG pCO2 30 L ABG pO2 105 ABG HCO3 10 L ABG O2 Saturation 98 ABG Base Excess -18 L VBG pH 7.10 L VBG pCO2 37 VBG pO2 36 VBG Base Excess -17 L Quality Measures Quality Measures VTE prophylaxis (Heparin subcut) Assessment & Plan Assessment Current Active Medications: Generic Name Dose Route Start Last Admin Trade Name Freq PRN Reason Stop Dose Admin Acetaminophen 650 mg 08/05/25 05:21 Acetaminophen 325 Mg Tablet PO 09/04/25 05:20 Q6H PRN Fever >101.5 Acetaminophen 650 mg 08/05/25 05:21 Acetaminophen 325 Mg Tablet PO 09/04/25 05:20 Q6H PRN PAIN SCALE 1-3 (mild Albuterol/Ipratropium 3 ml 08/05/25 05:42 Albuterol/Ipratropium (Duoneb) Rt [place] 3 Ml Nebu INH 09/04/25 06:59 Q6HRRT PRN wheezing Atorvastatin Calcium 20 mg 08/05/25 21:00 Atorvastatin Calcium 20 Mg Tablet PO 09/04/25 20:59 HS RUFUS Dextrose 25 ml 08/05/25 14:20 Dextrose 50%-Water Inj 50 Ml Syringe IV 09/04/25 14:19 Q15MIN PRN BG 50-70 responsive npo pt Dextrose 50 ml 08/05/25 14:20 Dextrose 50%-Water Inj 50 Ml Syringe IV 09/04/25 14:19 Q15MIN PRN BG <50 OR BG <70 & pt unresponsive Glucagon 1 mg 08/05/25 14:20 Glucagon Inj 1 Mg Vial IM Q15MIN PRN BG <70, and no IV access Heparin Sodium (Porcine) 5,000 unit 08/05/25 06:00 08/05/25 13:03 Heparin Sod Inj 5000 Unit/Ml Vial SC 08/19/25 05:59 5,000 unit Q8HR RUFUS Administration Hydromorphone HCl 1 mg 08/05/25 05:21 Hydromorphone Inj 2 Mg/Ml Vial IVP 08/10/25 05:20 Q4H PRN Pain7-10 Insulin Human Regular 100 unit in 100 mls @ 7.258 mls/hr 08/05/25 04:24 08/05/25 15:00 Myxredlin IV 09/04/25 04:23 0.1 unit/kg/hr .[id number] PRN 7.258 mls/hr PER PROTOCOL Titration Protocol 0.1 UNIT/KG/HR Potassium Chloride 10 meq in 100 mls @ 100 mls/hr 08/05/25 05:21 Kcl Ivpb IV 09/04/25 05:20 .Q1H PRN IF POTASSIUM LESS THAN 3.3 Magnesium Sulfate 2 gm in 50 mls @ 25 mls/hr 08/05/25 05:21 Magnesium Sulfate Ivpb IV 09/04/25 05:20 .Q2H PRN PER DKA PROTOCOL Dextrose/Lactated Ringer's 1,000 mls @ 250 mls/hr 08/05/25 05:21 D5-Lr IV 09/04/25 05:20 .Q4H PRN PER PROTOCOL Lactated Ringer's 1,000 mls @ 250 mls/hr 08/05/25 05:21 08/05/25 08:16 Lactated Ringers IV 08/06/25 05:20 0 mls/hr .Q4H PRN Infusion PER PROTOCOL Potassium Chloride 20 meq/ 1,010 mls @ 250 mls/hr 08/05/25 05:21 08/05/25 15:17 Lactated Ringer's IV 09/04/25 05:20 250 mls/hr .Q4H3M PRN Administration K LEVEL 3.3 TO 5.3mM/L Potassium Chloride 40 meq/ 1,020 mls @ 250 mls/hr 08/05/25 05:21 Lactated Ringer's IV 09/04/25 05:20 .Q4H5M PRN K LEVEL < 3.3 mM/L Potassium Chloride 40 meq/ 1,020 mls @ 250 mls/hr 08/05/25 05:21 Dextrose/Lactated Ringer's IV 09/04/25 05:20 .Q4H5M PRN K LEVEL < 3.3mM/L Potassium Chloride 10 meq in 100 mls @ 50 mls/hr 08/05/25 05:21 Kcl Ivpb IV 09/04/25 05:20 PRN PRN K LEVEL 3.3 to 5.3 & BG > 200 Potassium Phosphate 15 mmol in 250 mls @ 62.5 mls/hr 08/05/25 05:21 Pot Phos 15 Mmol In Ns 250 Ml IV 09/04/25 05:20 PRN PRN Phosphate <= 1mg/dL Sodium Phosphate 15 mmol/ 255 mls @ 62.5 mls/hr 08/05/25 05:21 Sodium Chloride IV 09/04/25 05:20 .Q4H5M PRN Phosphate <= 1mg/dL and K> than 5.3 Potassium Chloride 20 meq/ 1,010 mls @ 250 mls/hr 08/05/25 06:45 08/05/25 15:00 Dextrose/Lactated Ringer's IV 09/04/25 06:44 0 mls/hr .Q4H3M PRN Infusion K LEVEL 3.3 TO 5.3 mM/L Insulin Degludec 10 unit 08/05/25 14:30 08/05/25 14:36 Insulin Degludec 5 Unit/0.05 Ml (Per 5 Units) SC 09/04/25 14:29 10 unit QDAY RUFUS Administration Insulin Human Lispro 0 unit 08/05/25 17:00 Insulin Lispro (Admelog) 1 Unit/0.01 Ml Unit SC 09/04/25 16:59 AC RUFUS Protocol Ondansetron HCl 4 mg 08/05/25 05:21 08/05/25 12:23 Ondansetron Inj 2 Mg/Ml Inj 2 Ml IVP 09/04/25 05:20 4 mg Q6H PRN Administration NAUSEA OR VOMITING Protocol Oxycodone/Acetaminophen 1 tab 08/05/25 05:21 Oxycodone/Apap 5/325 Tablet PO 08/10/25 05:20 Q6H PRN PAIN SCALE 4-6 (Moderate Pantoprazole Sodium 40 mg 08/05/25 09:00 08/05/25 08:36 Pantoprazole Inj 40 Mg Vial IVP 09/04/25 08:59 40 mg QDAY RUFUS Administration Sennosides 1 tab 08/05/25 05:21 Senna Tablet PO 09/04/25 05:20 QDAY PRN constipation Protocol Sodium Bicarbonate 50 ml 08/05/25 05:21 Sodium Bicarb Inj 8.4% Syr 50 Ml Syringe IV 09/04/25 05:20 Q4HR PRN For ph <= to 7.0 Plan 49-year-old male with T2DM (insulin-dependent), HTN, HLD, and asthma admitted with DKA due to medication noncompliance. DKA resolved after insulin drip; transitioned to subcutaneous insulin (degludec 10 units daily). LAWANDA improving, hypernatremia persists. Downgraded from ICU for continued monitoring and diabetes education. # DKA (Resolved) # Diabetes mellitus type space, Secondary to insulin noncompliance. Anion gap closed ?2, bicarb normalized. A1c 12.6 Plan: * Continue basal insulin (degludec 10 units daily) + sliding scale. * Monitor glucose ACHS. * Continue diabetic education and physical therapist center manager follow-up. * Reassess home regimen prior to discharge. #Acute kidney injury (resolving) Likely prerenal, improving Likely due to dehydration from vomiting and osmotic diuresis. Cr 1.4 from 2.2 on admission, good UO. Plan: * Maintain hydration. * Avoid nephrotoxins. * Repeat renal panel in the morning. # Hypernatremia Na 150, likely due to free water deficit (2 L). Plan: * Encourage PO free water intake. * Repeat BMP in 4?6 hours. * Consider starting D5W if Na continues to rise; monitor BG closely. # Hyperthyroidism TSH 0.04, Free T4 2.53. Plan: * Start methimazole 5 mg daily * Monitor HR, thyroid panel. * Consider outpatient endocrinology referral. # Sinus Tachycardia Secondary to dehydration and resolving DKA. Plan: * Continue fluid resuscitation as needed. * Monitor HR; if persistent, consider low-dose propranolol # Leukocytosis Likely reactive WBC 14, afebrile, no infection source. Plan: * Trend CBC daily. # History of Asthma No active wheezing. Plan: * Continue albuterol PRN. Health Maintenance: DVT prophylaxis: Heparin SQ GI prophylaxis: Protonix 40 mg PO daily Diet: Carb-controlled Fluids: Encourage oral hydration; consider IV D5W if hypernatremia worsens Code Status: Full code ----- Plan discussed with attending physician Dr. Benavides and senior resident Dr. Joanne Diop MD PGY-1 Internal Medicine Attending Provider Attestation/Addendum I have seen and examined the patient. I was physically present for the coleman portions of the services provided including history, physical exam, diagnosis, treatment plans and orders. I agree with assessment and plan of care as documented by residents. Even though this this note was carefully revised there may still be minor errors in air traffic control specialist center due to voice recognition software. Alisha Benavides MD
[2025-08-05] MEDS: METHIMAZOLE 5 MG TABLET PO (17:03)
[2025-08-05 18:05] LABS: Albumin, Serum 3.8 gm/dL (3.5-5.0); Anion Gap 8 (7-16); BUN/Creatinine Ratio 24 Ratio (12-20); Blood Urea Nitrogen 29 mg/dL (9-23); Calcium 9.3 mg/dL (8.3-10.6); Calcium (Corrected) 9.5 mg/dL (8.5-10.1); Carbon Dioxide 28.3 mMol/L (20.0-31.0); Chloride 108 mMol/L (98-107); Creatinine (Component) 1.2 mg/dL (0.6-1.3); Estimated Creatinine Clearance 66.5 mL/min (>60); Glucose 171 mg/dL (74-106); Osmolality,Calculated 296 (275-295); Phosphorous 3.0 mg/dL (2.4-5.1); Potassium 4.2 mMol/L (3.4-5.1); Sodium 144 mMol/L (136-145); eGFR > 60 See Note
[2025-08-05] MEDS: ATORVASTATIN CALCIUM 20 MG TABLET PO (21:02)
[2025-08-05] MEDS: ACETAMINOPHEN 325 MG TABLET 650 MG PO (23:37)
[2025-08-06] VITALS: BP 135/78; PULSE 116; RESP 18; TEMP 36.9; O2SAT 96
[2025-08-06 04:00] VITALS: BP 121/80; PULSE 104; RESP 16; TEMP 36.2; O2SAT 95
[2025-08-06] MEDS: HEPARIN SOD INJ 5000 UNIT/ML VIAL SC (05:15)
[2025-08-06 05:36] LABS: Basophils # (Auto) 0.0 Thou/mm3 (0.0-0.2); Basophils % (Auto) 0 % (0-2.5); Eosinophils # (Auto) 0.0 Thou/mm3 (0.0-0.5); Eosinophils % (Auto) 0 % (0-10); Hematocrit 35.4 % (41.0-53.0); Hemoglobin 11.9 g/dL (13.5-16.0); Immature Granulocytes Auto 0.02 Thou/mm3 (0.00-0.00); Lymphocytes # (Auto) 1.9 Thou/mm3 (1.0-4.8); Lymphocytes % (Auto) 17 % (10-50); Mean Corpuscular HGB Conc 33.6 g/dl (31.0-37.0); Mean Corpuscular Hemoglobin 29.6 pg (25.0-35.0); Mean Corpuscular Volume 88 fL (80-100); Monocytes # (Auto) 0.9 Thou/mm3 (0.0-0.8); Monocytes % (Auto) 8 % (0-12); Neutrophils # (Auto) 8.2 Thou/mm3 (1.8-7.7); Neutrophils % (Auto) 74 % (37-80); Nucleated Red Blood Cell # 0.00 Thou/mm3 (0.00-0.00); Nucleated Red Blood Cell % 0 /100 WBC (0); Platelet Count 176 Thou/mm3 (140-440); RDW Standard Deviation 43.9 fL (35.1-43.9); Red Blood Count 4.02 Miln/mm3 (4.50-5.90); White Blood Count 11.1 Thou/mm3 (3.8-10.6)
[2025-08-06 06:00] VITALS: BMI 27.1
[2025-08-06 06:05] LABS: Alanine Aminotransferase 14 U/L (10-49); Albumin, Serum 3.3 gm/dL (3.5-5.0); Albumin/Globulin Ratio 1.9 (1.2-2.2); Alkaline Phosphatase 84 U/L (46-116); Anion Gap 8 (7-16); Aspartate Amino Transferase 18 U/L (0-34); BUN/Creatinine Ratio 25 Ratio (12-20); Bilirubin,Total 0.5 mg/dL (0.3-1.2); Blood Urea Nitrogen 25 mg/dL (9-23); Calcium 8.9 mg/dL (8.3-10.6); Calcium (Corrected) 9.5 mg/dL (8.5-10.1); Carbon Dioxide 29.3 mMol/L (20.0-31.0); Chloride 107 mMol/L (98-107); Creatinine (Component) 1.0 mg/dL (0.6-1.3); Estimated Creatinine Clearance 79.8 mL/min (>60); Globulin 1.7 gm/dL (2.3-3.5); Glucose 221 mg/dL (74-106); Magnesium 2.2 mg/dL (1.6-2.6); Osmolality,Calculated 298 (275-295); Phosphorous 3.5 mg/dL (2.4-5.1); Potassium 3.9 mMol/L (3.4-5.1); Sodium 144 mMol/L (136-145); Total Protein 5.0 gm/dL (5.7-8.2); eGFR > 60 See Note
[2025-08-06 07:05] VITALS: BP 138/93; PULSE 110; RESP 17; TEMP 36.9; O2SAT 96
[2025-08-06] MEDS: INSULIN LISPRO (AdmeLOG) 1 UNIT/0.01 ML UNIT SC ×3 (07:35→17:50)
[2025-08-06] MEDS: METHIMAZOLE 5 MG TABLET PO (08:29)
[2025-08-06] MEDS: INSULIN DEGLUDEC 5 UNIT/0.05 ML (PER 5 UNITS) 10 UNIT SC (08:30)
[2025-08-06 09:11] VITALS: BMI 26.9
[2025-08-06 11:15] VITALS: BP 146/80; PULSE 96; RESP 16; TEMP 36.9; O2SAT 95
[2025-08-06 12:15] LABS: Hematocrit 36.0 % (41.0-53.0); Hemoglobin 12.1 g/dL (13.5-16.0)
--- NOTE | 2025-08-06 12:33 | PC.SS ---
SS follow up note; Patient will discharge home today.
--- NOTE | 2025-08-06 13:24 | PC.DIETICIAN ---
Nutrition Education (DKA; A1C=12.6): Patient was educated on dietary management of diabetes; written material in [place] was provided for future reference. *Consider prescribing a [employer] Vicente 3 Plus sensor + [place] prior to discharge.
--- NOTE | 2025-08-06 13:54 | ESDS_ITS ---
<Statement entered by Vishal Rubio MD - 08/06/25 16:44> I have personally seen and examined the patient, agree with residents assessment and plan Patient plan of care was discussed with the attending physician, Dr. Makayla Rubio, PGY2 Planned Discharge Date 08/06/25 DS: Providers Provider Date of admission: 08/05/25 05:21 Primary care physician: Jefry Hall PA-C Admitting Provider: Brenda Clark MD Attending Provider on Admission: Alisha Benavides MD Consults: 08/05/25 05:23 Referral Registered Dietitian Routine Comment: 08/05/25 05:26 Referral Registered Dietitian Routine Comment: Attending Provider on DC: Alisha Benavides MD Discharging Provider: Juan Diop MD DS: Diagnosis Problem List Completed Was Problem List Reviewed/Reconciled?: Yes Hospital Course Hospital Course Hospital course: This is a 49-year-old male with past medical history of type 2 diabetes mellitus (insulin-dependent), hypertension, hyperlipidemia, asthma, and poor medication compliance, and was admitted for DKA. He presented to the ED on 08/05/2025 with nausea, vomiting, and abdominal discomfort for two days. He reported over 10 episodes of emesis and inability to tolerate oral intake. He admitted to not taking his insulin or diabetic medications regularly, believing they were ineff ective. In the ED, he was found to have DKA with glucose 698 mg/dL, anion gap 31, bicarbonate 12.2, and pH 7.10. He also had LAWANDA (Cr 2.2 from baseline 0.8) and mild lactic acidosis (3.6). He was admitted to the ICU and started on DKA protocol with insulin drip and IV fluids. He received 3 L of lactated Ringer?s and one amp of bicarbonate. Over the next 24 hours, his anion gap closed twice, acidosis resolved, and creatinine improved to 1.0 with good urine output. Once stabilized, he was transitioned from insulin drip to subcutaneous insulin (degludec 10 units daily with sliding scale) and downgraded to the medical floor. His hypernatremia (Na 150) improved with oral hydration. During evaluation, labs also revealed hyperthyroidism (TSH 0.04, Free T4 2.53), and the patient was started on methimazole 5 mg daily. Heart rate improved with hydration, and no propranolol was required. Repeat labs on discharge showed sodium 144, potassium 3.9, creatinine 1.0, lactic acid 1.9, and Hgb 11.9 (asymptomatic, likely hemodilutional). Blood cultures showed no growth at 24 hours. The patient was asymptomatic, eating well, ambulating, and felt ready for discharge. Diagnoses during admission: # DKA ? Resolved # LAWANDA ? Resolved # Hypernatremia ? Improved # Hyperthyroidism # Anemia, mild, likely dilutional # History of asthma # Hypertension # Hyperlipidemia Discharge instruction: -Follow-up with PCP within 1 week of discharge. If you do not have appointment, please follow-up with the [facility] with Dr. Rubio. Call [phone] to make an appointment. -Take Insulin Tresiba 30units SC daily at night 9:00 PM and adjust the dose according to blood sugars -Stop Insulin lantus and levemir -Recommended to take Methimazole 5mg once daily and follow up with your PCP to adjust the dose of medication -Recommended to monitor blood sugars with free style april -Continue rest of the home medications -Return to ED if symptoms persist or return ----- Plan discussed with attending physician Dr. Benavides and senior resident Dr. Joanne Diop MD PGY-1 Internal Medicine Time Spent with Patient Time attestation: Total time spent providing and/or coordinating discharge services: 33 minutes Time spent: Greater than 30 minutes Exam Vital Signs Temp Pulse Resp BP Pulse Ox O2 Del Method 98.5 F 96 16 146/80 H 95 Room Air 08/06/25 11:15 08/06/25 11:15 08/06/25 11:15 08/06/25 11:15 08/06/25 11:15 08/06/25 11:15 Narrative Exam General: Alert and oriented ?3, sitting in bed comfortably, no distress. HEENT: Mucous membranes moist, no pallor or icterus. Heart: Regular rhythm, mild tachycardia, no murmurs or gallops. Lungs: Clear to auscultation bilaterally, no wheezes or crackles. Abdomen: Soft, non-tender, non-distended, normal bowel sounds. Extremities: No edema, pulses palpable. Neuro: No focal deficits. Skin: Warm, dry, no rashes or bruising. Discharge Plan Plan Patient Disposition: HOME (Self Care) Patient condition on transfer: Stable Care Plan Goals: -Follow-up with PCP within 1 week of discharge. If you do not have appointment, please follow-up with the [facility] with Dr. Rubio. Call [phone] to make an appointment. -Take Insulin Tresiba 30units SC daily at night 9:00 PM and adjust the dose according to blood sugars -Stop Insulin lantus and levemir -Recommended to take Methimazole 5mg once daily and follow up with your PCP to adjust the dose of medication -Recommended to monitor blood sugars with free style april -Continue rest of the home medications -Return to ED if symptoms persist or return Prescriptions/Referrals Prescriptions/Med Rec: New insulin degludec [Tresiba FlexTouch U-100] 100 unit/mL (3 mL) insulin pen 30 unit subcut HS Qty: 15 3RF (DME) FreeStyle April 3 Plus Sensor Device See Rx Instructions .Route Qty: 1 3RF Rx Instructions: As directed (DME) FreeStyle April 3 [place] Misc See Rx Instructions .Route Qty: 1 0RF Rx Instructions: As directed methimazole 5 mg Tablet 5 mg PO QDAY Qty: 30 2RF Continued lisinopril 10 mg Tablet 10 mg PO QDAY [place] 50-1,000 mg Tablet 1 tab PO BID dicyclomine 20 mg tablet 20 mg PO QID PRN (Reason: abdominal pain) Qty: 30 0RF acetaminophen 650 mg tablet extended release 650 mg PO Q8H PRN (Reason: fever or pain) Qty: 30 0RF Rx Instructions: swallow whole; do not chew/break/dissolve/open ibuprofen 600 mg tablet 600 mg PO Q8H PRN (Reason: fever or pain) Qty: 30 0RF Trulicity 3 mg/0.5 mL pen injector 3 mg SUBCUT .WEEKLY Rx Instructions: INJECT 3MG ONCE EVERY WEEK SUBQ Discontinued naproxen 500 mg Tablet 500 mg PO BID ondansetron HCl [Zofran] 4 mg tablet 4 mg PO QID PRN (Reason: nausea and vomiting) Qty: 14 0RF insulin glargine [Lantus Solostar U-100 Insulin] 100 unit/mL (3 mL) insulin pen 35 unit SUBCUT BID Rx Instructions: INJECT 35 UNITS IN THE MORNING & 30 UNITS IN THE NIGHT insulin detemir U-100 100 unit/mL (3 mL) insulin pen 30 unit subcut BID Rx Instructions: INJECT 30 UNITS SUBQ TWICE A DAY Referrals: Jefry Hall PA-C [Primary Care Provider] Patient/Caregiver Discharge Instructions Education Materials: Diabetes and Heart Disease, Diabetes and Kidney Disease, Diabetic Ketoacidosis, ED Diet: Diabetes, Diabetes and High Blood Pressure Print Language: Armenian Stand Alone Forms: Ivvi Award Info., Patient Portal Info Letter Discharge Order Discharge Orders: Discharge (Routine); Ordered 08/06/25 Ordered By: Vishal Rubio Quality Discharge Quality Measures VTE prophylaxis MD Attestestation MD Attestation I have seen and examined the patient. I was physically present for the coleman portions of the services provided including history, physical exam, diagnosis, treatment plans and orders. I agree with assessment and plan of care as do cumented by residents. Even though this this note was carefully revised there may still be minor errors in fur trapper due to voice recognition software. Alisha Benavides MD
[2025-08-06 15:00] VITALS: BP 140/76; PULSE 92; RESP 17; TEMP 36.8; O2SAT 96
[2025-08-06 19:10] VITALS: BP 138/82; PULSE 97; RESP 18; TEMP 36.5; O2SAT 94
== END 2025-08-06 19:18 | disposition home or self-care (01) | DRG 420 ==
LOC: SERX 04:49 → SERHOLD 06:11 → S2SX 07:38 → S3SX 08-06 05:44
PROVIDERS: Nurse Practitioner Family; Student in an Organized Health Care Education/Training Program; Admitting Provider Student in an Organized Health Care Education/Training Program; Emergency Provider Emergency Medicine; PCP Physician Assistant; Visit Provider Student in an Organized Health Care Education/Training Program
DX: E11.10 Type 2 diabetes mellitus with ketoacidosis without coma (principal); I10 Essential (primary) hypertension; J45.909 Unspecified asthma, uncomplicated; E78.5 Hyperlipidemia, unspecified; N17.9 Acute kidney failure, unspecified; E87.0 Hyperosmolality and hypernatremia; E05.90 Thyrotoxicosis, unspecified without thyrotoxic crisis or storm; D72.829 Elevated white blood cell count, unspecified; Z79.4 Long term (current) use of insulin; D64.9 Anemia, unspecified; Z91.148 Patient's other noncompliance with medication regimen for other reason; T38.3X6A Underdosing of insulin and oral hypoglycemic [antidiabetic] drugs, initial encounter; Z91.128 Patient's intentional underdosing of medication regimen for other reason
CPT/HCPCS: 36415; 36600; 71045; 74176; 80053; 80061; 80069; 80307; 80320; 81001; 82010; 82150; 82248; 82803; 83036; 83605; 83690; 83735; 83880; 84100; 84145; 84439; 84443; 84484; 85014; 85018; 85025; 85610; 85652; 85730; 86140; 87040; 87081; 87502; 87811; 93005; 96361; 96372; 96374; 96375; 96376; 99284; J1644; J1815; J1885; J2405; J2470; J3480; J7120; J7121; Q0162; A9270; G0480